=== PATIENT | female | born 1955 | race Two or more races ===

== ENCOUNTER → 2024-03-03 | Outpatient (CLI) | payer MEDICAID, SELFPAY ==
--- NOTE | 2024-03-03 12:20 | XR_ITS ---
Examination: Bone densitometry Date and time of exam:March 03, 2024 1207 hours INDICATIONS: Menopause age 48, levothyroxine 1 year Technique: Lumbar spine and hip total bone mineralization values of an calculated. Peak reference and age match control results have been displayed. Findings: Lumbar spine total bone mineralization is0.741 gm/cm2. This is 2.8 standard deviations below peak reference. This is 0.6 standard deviations below age-matched controls. Hip total bone mineralization is 0.748 gm/cm2 This is 1.6 standard deviations below peak reference. This is 0.1 standard deviations below age-matched controls Impression: There is osteoporosis based on lumbar spine measurements. There is osteopenia based on hip measurements
== END | disposition home or self-care (01) ==
LOC: CDIM 11:48
PROVIDERS: Referring Provider Student in an Organized Health Care Education/Training Program; Visit Provider Student in an Organized Health Care Education/Training Program
DX: M81.0 Age-related osteoporosis without current pathological fracture (principal); M85.88 Other specified disorders of bone density and structure, other site; G89.29 Other chronic pain
CPT/HCPCS: 77080

== ENCOUNTER 2024-03-16 16:46 | Emergency (ER) | payer MEDICAID, SELFPAY ==
[2024-03-16 17:18] VITALS: BP 128/73; PULSE 75; RESP 16; TEMP 36.8; O2SAT 96; BMI 22.8
--- NOTE | 2024-03-16 17:58 | EDNOTE_ITS ---
ED Ear RME/HPI General Chief complaint: Ear Stated complaint: pain in both ears, more in right x 3 weeks Time Seen by Provider: 03/16/24 17:10 Arrival date/time: 03/16/24 16:46 RME / HPI RME / HPI Narrative: DR. WHARTON MAIN ED EVALUATION: 68 year old female presents to the Emergency Department with complaint of pain in both ears, moreso in the right ear. Onset of symptoms 3 weeks, worse today. Patient recently had a cold. PMHx: Hypertension, hypothyroidism, CKD, and GERD. Social Hx: No tobacco, alcohol, or substance use. Related Data Home Medications ?Medication ?Instructions ?Recorded ?Confirmed ondansetron 4 mg disintegrating 4 mg PO Q4-5H PRN Nausea 01/13/23 01/06/24 tablet Previous Rx's ?Medication ?Instructions ?Recorded acetaminophen 500 mg tablet 500 mg PO [id number] PRN Pain, Mild 03/12/23 #30 tabs omeprazole 40 mg capsule,delayed 40 mg PO QDAY #30 caps 03/12/23 release betamethasone dipropionate 0.05 % 1 applic topical QDAY #45 grams 07/07/23 topical ointment tramadol 50 mg tablet 50 mg PO Q6H PRN pain #30 tabs 08/16/23 levothyroxine 25 mcg capsule 25 mcg PO QDAY #60 caps 12/22/23 pilocarpine HCl 5 mg tablet 10 mg (2 x 5 mg) PO TID 30 days 01/06/24 #180 tabs amlodipine 2.5 mg tablet 2.5 mg PO QDAY 30 days #30 tabs 01/20/24 atorvastatin 40 mg tablet 40 mg PO QHS #30 tabs 01/20/24 ergocalciferol (vitamin D2) 1,250 1,250 mcg PO QWEEK #4 caps 01/20/24 mcg (50,000 unit) capsule acetaminophen 300 mg-codeine 30 mg 2 tab PO TID PRN pain #20 tabs 03/16/24 tablet [id number] 3.3 4 drp otic (ear) TID 7 days #10 mL 03/16/24 mg-3 mg-10 mg-0.5 mg/mL ear drops,susp (Cortisporin-TC) Allergies Allergy/AdvReac Type Severity Reaction Status Date / Time No Known Allergies Allergy Verified 03/16/24 16:47 Review of Systems Review of Systems Systems Reviewed: All systems reviewed, normal except as documented Narrative Review of Systems: GEN: No fever, no chills, no weight loss EYES: No discharge, no visual changes, no pain HEENT: + bilateral ear pain (right ear worse), no congestion, no sore throat PULM: No shortness of breath, no cough, no congestion CV: No chest pain, no dyspnea on exertion, no palpitations GI: No nausea, no vomiting, no diarrhea, no pain, no constipation : No frequency, no urgency and no dysuria MUSC/SKEL: No joint pain, no back pain SKIN: No rash PSYCH: No hallucinations, no depression HEME/LYMPH: No easy bleeding or bruising tendencies NEURO: No weakness, no headache Past Medical History Past Medical History NEUROLOGIC: Positive Neurological Disorders and Migraine; Negative Seizures CARDIAC: Positive Hypertension; Negative Cardiac Disorders or Congestive Heart Failure RESPIRATORY: Negative Chronic Obstructive Pulmonary Disease (COPD) or Asthma GASTROINTESTINAL: Positive Gastrointestinal Disorders and Gastroesophageal Reflux Disease GENITOURINARY: Positive Genitourinary Disorders and Kidney Stones; Negative Renal Disease MUSCULOSKELETAL: Positive Musculoskeletal Disorders ENT: Positive Cataracts ENDOCRINE: Positive Hypothyroidism; Negative Diabetes Mellitus Type 1 or Diabetes Mellitus Type 2 HEMATOLOGIC: Negative Blood Disorders or Sickle Cell Disease PSYCHO/SOCIAL: Negative Depression or Anxiety OTHER HISTORY: Positive Chemotherapy, Radiation Therapy and Cancer; Negative Autoimmune Disease, Blood Transfusions, Blood Transfusion Reaction, Anesthesia Reactions, MRSA, VRSA, Vancomycin-Resistant Enterococci or Clostridium Difficile Family History FAMILY HISTORY: Negative Family Psychiatric Problems, Family Respiratory Disorders, Family Cardiac Disorders, Family Gastrointestinal Problems, Family Cancer, Family Surgery or Family Anesthesia Reaction Social History SMOKING STATUS: Never smoker SUBSTANCE USE: does not use ALCOHOL: Never ED Exam Narrative Physical exam: GENERAL APPEARANCE: alert and oriented x 4, well-developed, well-nourished, no acute distress VITALS: All vitals were reviewed and the pulse ox is 96% on room air, which is normal according to my interpretation. HEENT: Normocephalic, atraumatic; pupils equal, round, reactive to light; EOMI; mucous membranes pink, moist; oropharynx clear, + right ear impacted with cerumen NECK: Supple LUNGS: CTABL; no wheezes, no rales, no rhonchi HEART: Regular rate, regular rhythm; normal S1, S2; no murmurs ABDOMEN: non distended; normal BS; soft, no tenderness, no guarding, no rebound; no masses, no organomegaly, no hernia BACK: no CVA tenderness EXTREMITIES: atraumatic; no edema NEUROLOGIC: awake; alert and oriented x4; cranial nerves II-XII grossly intact; no focal sensory or motor deficits PSYCHIATRIC: appropriate mood and affect SKIN: warm, dry, normal color; no rashes Course Course Course Narrative: 1800: Patient was signed out to Dr. Bynum. Past medical, surgical, social and family history reviewed. Vitals and home medications reviewed. Results and treatment plan discussed. They will assume the care of the patient at this time and will follow the patient, pending ear irrigation and final disposition. Quality Measures none Orders Category Date Time Status ACETAMINOPHEN w/COD 300-30 [Tylenol w/Cod #3] Med 03/16/24 18:13 Discontinued 2 tab PO X1 ONE Vital Signs Vital signs: Vital Signs Temperature 98.2 F 03/16/24 17:18 Pulse Rate 75 03/16/24 17:18 Respiratory Rate 16 03/16/24 17:18 Blood Pressure 128/73 03/16/24 17:18 Pulse Oximetry (%) 96 03/16/24 17:18 Oxygen Delivery Method Room Air 03/16/24 17:18 Ear MDM Narrative MDM Narrative:: IJanine am scribing for and in the presence of Dr. Wharton. Patient data External records reviewed:: [facility] previous records (Reviewed physical therapy note dated 02/17/24.) Clinical information provided by:: patient Social determinants that could affect healthcare access:: none Patient has the following chronic illnesses:: Hypertension, hypothyroidism, CKD, and GERD. How is presenting disease/condition affected by chronic disease/condition?: uneffected by Evaluation data The following diagnostics were reviewed and interpreted by me:: other (specify) (none) Lab and/or radiology exams considered but not ordered:: none Interpretation Summary: n/a Medications / Prescriptions Medications or Prescriptions considered but not ordered:: none Medication administrations:: Medication Administration History Discontinued Medications Acetaminophen/Codeine Phosphate (Acetaminophen W/Cod 300-30 Tablet) 2 tab PO X1 ONE Stop: 03/16/24 18:14 Last Admin: 03/16/24 18:19 Dose: 2 tab Documented By: EH see above Consultations Consultation(s) initiated? (list below): No Diagnosis Ear Differential Diagnosis: otitis externa, otitis media and cerumen impaction Most likely diagnosis given after review of the tests above:: Infection of right ear Impacted cerumen of right ear Admission Indicated Admission indicated?: not indicated Admission Request Was there a request for admission?: No Disposition Plan Disposition Plan: other (specify) (Patient signout to the maintenance technician 3rd shift provider. ) Medical Decision Making MDM Narrative MDM Narrative: Janine Valero am scribing for and in the presence of Dr. Wharton. Discharge Plan Plan Patient Disposition: HOME (Self Care) Prescriptions/Referrals Prescriptions/Med Rec: New acetaminophen-codeine 300-30 mg tablet 2 tab PO TID MDD 6 PRN (Reason: pain) Qty: 20 0RF Cortisporin-TC 3.3-3-10-0.5 mg/mL drops,suspension 4 drp otic (ear) TID 7 Days Qty: 10 0RF No Action acetaminophen 500 mg tablet 500 mg PO [id number] PRN (Reason: Pain, Mild) Qty: 30 0RF omeprazole 40 mg capsule,delayed release(DR/EC) 40 mg PO QDAY Qty: 30 0RF betamethasone dipropionate 0.05 % ointment 1 applic topical QDAY Qty: 45 0RF pilocarpine HCl 5 mg tablet 10 mg PO TID 30 Days Qty: 180 3RF amlodipine 2.5 mg tablet 2.5 mg PO QDAY 30 Days Qty: 30 2RF atorvastatin 40 mg tablet 40 mg PO QHS Qty: 30 2RF ergocalciferol (vitamin D2) 1,250 mcg (50,000 unit) capsule 1,250 mcg PO QWEEK Qty: 4 2RF levothyroxine 25 mcg capsule 25 mcg PO QDAY Qty: 60 1RF ondansetron 4 mg tablet,disintegrating 4 mg PO Q4-5H PRN (Reason: Nausea) Patient Comments: DISSOLVE 1 TABLET ON THE TONGUE EVERY 4-6 HOURS NEEDED FOR NAUSEA FOR 14 DAYS tramadol 50 mg tablet 50 mg PO Q6H PRN (Reason: pain) Qty: 30 0RF Problem List Clinical Impression: Infection of right ear, Impacted cerumen of right ear Patient/Caregiver Discharge Instructions Education Materials: ED PERFORATED TM Infected [Adult], ED External Ear Infection (Adult), ED Earwax Removal Additional Instructions: Discharge Instructions from Dr. Bynum printed for you: 1. You have severe right ear infection (seen after removing the earwax) which caused small perforation of the eardrum. The perforation will close and heal in one month. 2. For the infection, use the eardrops prescribed today and take Augmentin prescribed by your outside doctor. 3. Ibuprofen 400 mg every 6-8 hours today and tomorrow to decrease inflammation then as needed. 4. Tylenol with codeine for severe pain. 5. See your private doctor on 03/18/2024 for recheck. Ask for help until you are completely better. If needed, ask for a referral to see ENT (ear/nose/throat) specialist. 6. Seek immediate medical care with worsening or with any concerns. Print Language: Kinyarwanda Stand Alone Forms: Shira Award Info., Patient Portal Info Letter
--- NOTE | 2024-03-16 18:18 | EDNOTE_ITS ---
Emergency Room Addendum <Janine Leal - Last Filed: 03/16/24 18:32> Addendum Narrative: 1800: Care assumed from Dr. Wharton, the previous shift emergency physician. Past medical, surgical, social and family history reviewed. Vitals and home medications reviewed. I will assume the care of the patient at this time, pending ear irrigation and final disposition. Please refer to the emergency department record for history and examination from initial visit.? Physical exam by me shows patient under no acute distress at this time. 1821: Patient remains clinically stable throughout the emergency department visit. Re-assessment at the time of disposition demonstrates that the patient is in no acute distress. We reviewed all the results, analysis, and treatment plans. Patient is amenable to discharge. Strict return precautions were outlined. Patient was discharged in stable condition. <Raza Bynum MD - Last Filed: 03/16/24 19:52> Addendum Narrative: I took over the care from Dr. WHARTON at 6 PM, see her notes for complete H&P and ED course. I was asked to irrigate her right auditory canal for cerumen impaction. Using warm water, I successfully irrigated her right auditory canal and removed entire cerumen impaction, patient felt much better. On exam, TM severely erythematous and bulging and loss of landmarks. Entire auditory canal remarkable for severe erythema and edema and tenderness. At this point, diagnoses include?right otitis media and otitis externa and cerumen impaction now resolved. Patient has a prescription for Augmentin from outside doctor. Prescribed eardrops and recommended more outpatient care. Based on my best medical judgment, made decision no further evaluation or treatment indicated at this time.? Patient understands and agrees to the discharge instructions customized and printed, see below. Discharge Instructions from Dr. Bynum printed for you: 1. You have severe right ear infection (seen after removing the earwax) which caused small perforation of the eardrum. The perforation will close and heal in one month. 2. For the infection, use the eardrops prescribed today and take Augmentin p rescribed by your outside doctor. 3. Ibuprofen 400 mg every 6-8 hours today and tomorrow to decrease inflammation then as needed. 4. Tylenol with codeine for severe pain. 5. See your private doctor on 03/18/2024 for recheck. Ask for help until you are completely better. If needed, ask for a referral to see ENT (ear/nose/throat) specialist. 6. Seek immediate medical care with worsening or with any concerns. Raza Bynum MD
[2024-03-16] MEDS: ACETAMINOPHEN w/COD 300-30 TABLET 2 TAB PO (18:19)
== END 2024-03-16 18:26 | disposition home or self-care (01) ==
LOC: SERX 18:45
PROVIDERS: Emergency Provider Emergency Medicine
DX: H60.391 Other infective otitis externa, right ear (principal); H61.21 Impacted cerumen, right ear; I12.9 Hypertensive chronic kidney disease with stage 1 through stage 4 chronic kidney disease, or unspecified chronic kidney disease; K21.9 Gastro-esophageal reflux disease without esophagitis; N18.9 Chronic kidney disease, unspecified; E03.9 Hypothyroidism, unspecified
CPT/HCPCS: 99282; A9270

== ENCOUNTER 2024-04-06 09:51 | Outpatient (AMB) | payer MEDICAID, SELFPAY ==
[2024-04-06 09:52] VITALS: BP 145/71; PULSE 97; RESP 18; TEMP 36.7; O2SAT 97; BMI 22.4
--- NOTE | 2024-04-06 09:52 | PD.RESCLINIC ---
Vital Signs 04/06/24 09:52 Height 1.65 m Height Method Stated Weight 60.895 kg Weight Measurement Method Standing Scale BMI 22.4 BP 145/71 H Blood Pressure Source Automatic Cuff Blood Pressure Location Left Upper Arm Position Sitting Respiration 18 Pulse 97 Pulse Source Monitor Temp 98.1 F Temp Source Oral Pulse Oximetry (%) 97 Oxygen Delivery Method Room Air Allergies/Meds Allergies & Medications Allergies No Known Allergies Allergy (Verified 04/06/24 10:04) Medication Reconciliation ondansetron 4 mg disintegrating tablet 4 mg PO Q4-5H PRN Nausea 01/13/23 [History Confirmed 04/06/24] acetaminophen 500 mg tablet 500 mg PO [id number] PRN Pain, Mild #30 tabs 03/12/23 [Rx Confirmed 04/06/24] omeprazole 40 mg capsule,delayed release 40 mg PO QDAY #30 caps 03/12/23 [Rx Confirmed 04/06/24] betamethasone dipropionate 0.05 % topical ointment 1 applic topical QDAY #45 grams 07/07/23 [Rx Confirmed 04/06/24] tramadol 50 mg tablet 50 mg PO Q6H PRN pain #30 tabs 08/16/23 [Rx Confirmed 04/06/24] levothyroxine 25 mcg capsule 25 mcg PO QDAY #60 caps 12/22/23 [Rx Confirmed 04/06/24] pilocarpine HCl 5 mg tablet 10 mg (2 x 5 mg) PO TID 30 days #180 tabs 01/06/24 [Rx Confirmed 04/06/24] amlodipine 2.5 mg tablet 2.5 mg PO QDAY 30 days #30 tabs 01/20/24 [Rx Confirmed 04/06/24] atorvastatin 40 mg tablet 40 mg PO QHS #30 tabs 01/20/24 [Rx Confirmed 04/06/24] ergocalciferol (vitamin D2) 1,250 mcg (50,000 unit) capsule 1,250 mcg PO QWEEK #4 caps 01/20/24 [Rx Confirmed 04/06/24] acetaminophen 300 mg-codeine 30 mg tablet 2 tab PO TID PRN pain #20 tabs 03/16/24 [Rx Confirmed 04/06/24] famotidine 40 mg tablet 40 mg PO BID 30 days #60 tabs 04/06/24 [Rx] loratadine 5 mg-pseudoephedrine ER 120 mg tablet,extended release,12hr (Claritin-D 12 Hour) 1 tab PO Q12H 30 days #60 tabs 04/06/24 [Rx] meclizine 12.5 mg tablet 12.5 mg PO BID PRN dizziness or vertigo 20 days #14 tabs 04/06/24 [Rx] ibandronate 150 mg tablet 150 mg PO QMONTH #3 tabs 04/08/24 [Rx] MA Intake Visit Data Collection New Patient or Established: Established Patient (seen at [facility] within 3 years) Seen by Clinical Staff ONLY (RN/MA): No Pain Present Currently: No Pain scale:: 0 Pain Scale Used: Darby-Marlow/Numerical Machine Pecan Picker Required: Yes PCP or OBGYN visit in last 3 months: Yes Hx Now: No Do You Feel Safe at Home: Yes Authorities Contacted: N/A Smoking Status Smoking Status: Never smoker Immunization / Flu Flu Vaccine in the Last 12 Months: No Flu Vaccine Exclusion Criteria: No Exclusion Criteria Past Medical History Past Medical History NEUROLOGIC: Positive Neurological Disorders and Migraine; Negative Seizures CARDIAC: Positive Hypertension; Negative Cardiac Disorders or Congestive Heart Failure RESPIRATORY: Negative Chronic Obstructive Pulmonary Disease (COPD) or Asthma GASTROINTESTINAL: Positive Gastrointestinal Disorders and Gastroesophageal Reflux Disease GENITOURINARY: Positive Genitourinary Disorders and Kidney Stones; Negative Renal Disease ENT: Positive Cataracts ENDOCRINE: Positive Hypothyroidism; Negative Diabetes Mellitus Type 1 or Diabetes Mellitus Type 2 HEMATOLOGIC: Negative Blood Disorders or Sickle Cell Disease PSYCHO/SOCIAL: Negative Depression or Anxiety OTHER HISTORY: Positive Chemotherapy, Radiation Therapy and Cancer; Negative Autoimmune Disease, Blood Transfusions, Blood Transfusion Reaction, Anesthesia Reactions, MRSA, VRSA, Vancomycin-Resistant Enterococci or Clostridium Difficile Family History FAMILY HISTORY: Negative Family Psychiatric Problems, Family Respiratory Disorders, Family Cardiac Disorders, Family Gastrointestinal Problems, Family Cancer, Family Surgery or Family Anesthesia Reaction Social History SMOKING STATUS: Smoking status: Never smoker ALCOHOL: Alcohol Intake: Never HOUSING: Housing: House LIVES WITH: Lives With: Family Patient Portal Questionairmatt Social History Living Situation History Housing: House Tobacco History Smoking Status: Never smoker Alcohol History Alcohol Intake: Never Domestic Abuse History Do You Feel Safe at Home: Yes Review of Systems Report any current symptoms Only answer those that you have currently: Past Medical History Past Medical History Have you ever been diagnosed with any of the following: Neurological Problems Seizures: No Migraine: Yes Cardiology Problems Congestive Heart Failure: No Hypertension: Yes Respiratory Problems Chronic Obstructive Pulmonary Disease (COPD): No Asthma: No Stomache/Intestinal Problems Gastroesophageal Reflux Disease: Yes Genital/Urinary Problems Renal Disease: No Kidney Stones: Yes Head,Eye,Nose,Throat Problems Cataracts: Yes Endocrine Problems Diabetes Mellitus Type 1: No Diabetes Mellitus Type 2: No Hypothyroidism: Yes Blood Problems Sickle Cell Disease: No Psychologic Problems Depression: No Anxiety: No Other Problems Autoimmune Disease: No Blood Transfusions: No Blood Transfusion Reaction: No Anesthesia Reactions: No Chemotherapy: Yes Radiation Therapy: Yes MRSA: No VRSA: No Vancomycin-Resistant Enterococci: No Clostridium Difficile: No Cancer: Yes History of Present Illness HPI Narrative A 67-year-old female patient known case of hypertension, CKD, cataract surgery, hypothyroidism, 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 Patient reported that for the past few days she has reported that she has dizziness in which she went to the ED and she was prescribed Tylenol, ibuprofen, and underwent earwax cleaning. She reported significant improvement of her symptoms however she still have some mild dizziness that is not related to position. She denied any tinnitus and denied any nausea or vomiting. She reported that her blood pressure usually normal and she stopped taking her blood pressure medications amlodipine. In review of other system patient mentioned that she has mild hip pain in which she takes Tylenol and resolved her symptoms. DEXA scan came back today and showed osteoporosis of the vertebral bones of -2.8. Most Recent Cardiac Tests: No Data to Display Review of Systems Review of Systems Systems Reviewed: All systems reviewed, normal except as documented Objective/Exam General General Appearance: alert, in no apparent distress, comfortable, cooperative, healthy appearing, well developed and well groomed Head Head exam: atraumatic, normocephalic and normal inspection Neck Neck exam: Present normal inspection, full ROM and trachea midline Chest Chest inspection: Present normal inspection and symmetric chest wall rise Resp Respiratory exam: Present normal lung sounds bilaterally Card Cardiovascular exam: Present regular rate, normal rhythm and normal heart sounds Abdominal Abdominal exam: Present soft and normal bowel sounds Extremities Extremities exam: Present normal inspection and full ROM Back Back exam: Present normal inspection and full ROM Neuro Neurological exam: Present alert, oriented X3 and CN II-XII intact Psych Psychiatric exam: Present normal affect and normal mood Assessment & Plan Diagnosis / Problem List (1) Dizziness: Assessment & Plan: No focal neurological symptoms, no presyncopal episodes, no sweating, continue symptoms most likely secondary to middle ear infection versus vestibulitis Plan: ? Patient was prescribed Augmentin as per ED physician notes from an outside doctor, recommended to continue ? Prescribe the patient meclizine 12.5 as needed twice daily ?Continue the patient on Claritin for 1 more week. ? In case of worsening of her symptoms please return to the ED or walk-in appointment according to symptom severity ? In case of loss of balance, weakness, facial droop, blurry vision, difficulty of speaking patient was instructed to come to the ED as soon as possible. ? In case of worsening of your symptoms please return to the office (2) Age related osteoporosis: Status: Acute Qualifiers: Presence of current pathological fracture: without current pathological fracture Qualified Code(s): M81.0 - Age-related osteoporosis without current pathological fracture Assessment & Plan: Patient DEXA scan was done in February 2024 and showed a 2.8 standard deviations below peak reference. Plan: ? Ibandrobate 150mg Qmonth ? Switched omeprazole to famotidine Advanced Care Planning Advance care planning discussed with:: patient and child Office Procedures [facility] Level of Care Nursing/Assessment Patient Status: Established Patient Nursing Assessment/Reassessment: Medication Reconciliation, Update PMH in EMR and Vital Signs Coordination of Care: Complex Care and Chronic Disease 1-5, Consent,records obtained, informed consent, Education Simp Pt/Fam, Lab and Imaging orders and Staff clarify orders Established Patient Charge Established Patient Point Assignment: 100 Established Patient Point Charge: Level 3 (80-115)
== END 2024-04-06 10:44 | disposition home or self-care (01) ==
LOC: HODAHC 09:51
PROVIDERS: PCP Student in an Organized Health Care Education/Training Program; Referring Provider Student in an Organized Health Care Education/Training Program; Supervising Provider Internal Medicine; Visit Provider Student in an Organized Health Care Education/Training Program
DX: R42 Dizziness and giddiness (principal)
CPT/HCPCS: 99213; A9270; G0463

== ENCOUNTER 2024-05-04 08:59 | Outpatient (AMB) | payer MEDICAID, SELFPAY ==
[2024-05-04 09:05] VITALS: BP 126/77; PULSE 71; RESP 14; TEMP 36.8; O2SAT 96; BMI 25.3
--- NOTE | 2024-05-04 09:05 | ACNOTE_ITS ---
Vital Signs 05/04/24 09:05 Height 1.57 m Height Method Stated Weight 62.823 kg Weight Measurement Method Standing Scale BMI 25.3 BP 126/77 Blood Pressure Source Automatic Cuff Blood Pressure Location Left Upper Arm Position Sitting Respiration 14 Pulse 71 Pulse Source Monitor Temp 98.3 F Temp Source Oral Pulse Oximetry (%) 96 Oxygen Delivery Method Room Air Allergies/Meds Allergies & Medications Allergies No Known Allergies Allergy (Verified 05/04/24 09:07) Medication Reconciliation ondansetron 4 mg disintegrating tablet 4 mg PO Q4-5H PRN Nausea 01/13/23 [History Confirmed 05/04/24] acetaminophen 500 mg tablet 500 mg PO [id number] PRN Pain, Mild #30 tabs 03/12/23 [Rx Confirmed 05/04/24] omeprazole 40 mg capsule,delayed release 40 mg PO QDAY #30 caps 03/12/23 [Rx Confirmed 05/04/24] betamethasone dipropionate 0.05 % topical ointment 1 applic topical QDAY #45 grams 07/07/23 [Rx Confirmed 05/04/24] tramadol 50 mg tablet 50 mg PO Q6H PRN pain #30 tabs 08/16/23 [Rx Confirmed 05/04/24] levothyroxine 25 mcg capsule 25 mcg PO QDAY #60 caps 12/22/23 [Rx Confirmed 05/04/24] pilocarpine HCl 5 mg tablet 10 mg (2 x 5 mg) PO TID 30 days #180 tabs 01/06/24 [Rx Confirmed 05/04/24] amlodipine 2.5 mg tablet 2.5 mg PO QDAY 30 days #30 tabs 01/20/24 [Rx Confirmed 05/04/24] atorvastatin 40 mg tablet 40 mg PO QHS #30 tabs 01/20/24 [Rx Confirmed 05/04/24] ergocalciferol (vitamin D2) 1,250 mcg (50,000 unit) capsule 1,250 mcg PO QWEEK #4 caps 01/20/24 [Rx Confirmed 05/04/24] acetaminophen 300 mg-codeine 30 mg tablet 2 tab PO TID PRN pain #20 tabs 03/16/24 [Rx Confirmed 05/04/24] famotidine 40 mg tablet 40 mg PO BID 30 days #60 tabs 01/14/25 [Rx Confirmed 05/04/24] loratadine 5 mg-pseudoephedrine ER 120 mg tablet,extended release,12hr (Claritin-D 12 Hour) 1 tab PO Q12H 30 days #60 tabs 04/06/24 [Rx Confirmed 05/04/24] ibandronate 150 mg tablet 150 mg PO QMONTH #3 tabs 04/08/24 [Rx Confirmed 05/04/24] diphenhydramine-zinc acetate 2 %-0.1 % topical cream (Benadryl Extra Strength) 1 applic topical TID #28.3 grams 05/04/24 [Rx] MA Intake Visit Data Collection New Patient or Established: Established Patient (seen at [facility] within 3 years) Seen by Clinical Staff ONLY (RN/DORIS): No Pain Present Currently: No Pain scale:: 0 Pain Scale Used: Darby-Marlow/Numerical Integrated Circuit Design Engineer Required: No PCP or OBGYN visit in last 3 months: Yes Hx Now: No Do You Feel Safe at Home: Yes Authorities Contacted: N/A Smoking Status Smoking Status: Never smoker Immunization / Flu Flu Vaccine in the Last 12 Months: No Flu Vaccine Exclusion Criteria: No Exclusion Criteria Past Medical History Past Medical History NEUROLOGIC: Positive Neurological Disorders and Migraine; Negative Seizures CARDIAC: Positive Hypertension; Negative Cardiac Disorders or Congestive Heart Failure RESPIRATORY: Negative Chronic Obstructive Pulmonary Disease (COPD) or Asthma GASTROINTESTINAL: Positive Gastrointestinal Disorders and Gastroesophageal Ref lux Disease GENITOURINARY: Positive Genitourinary Disorders and Kidney Stones; Negative Renal Disease ENT: Positive Cataracts ENDOCRINE: Positive Hypothyroidism; Negative Diabetes Mellitus Type 1 or Diabetes Mellitus Type 2 HEMATOLOGIC: Negative Blood Disorders or Sickle Cell Disease PSYCHO/SOCIAL: Negative Depression or Anxiety OTHER HISTORY: Positive Chemotherapy, Radiation Therapy and Cancer; Negative Autoimmune Disease, Blood Transfusions, Blood Transfusion Reaction, Anesthesia Reactions, MRSA, VRSA, Vancomycin-Resistant Enterococci or Clostridium Difficile Family History FAMILY HISTORY: Negative Family Psychiatric Problems, Family Respiratory Disorders, Family Cardiac Disorders, Family Gastrointestinal Problems, Family Cancer, Family Surgery or Family Anesthesia Reaction Social History SMOKING STATUS: Smoking status: Never smoker ALCOHOL: Alcohol Intake: Never HOUSING: Housing: House LIVES WITH: Lives With: Family Patient Portal Questionaires Social History Living Situation History Housing: House Tobacco History Smoking Status: Never smoker Alcohol History Alcohol Intake: Never Domestic Abuse History Do You Feel Safe at Home: Yes Review of Systems Report any current symptoms Only answer those that you have currently: Past Medical History Past Medical History Have you ever been diagnosed with any of the following: Neurological Problems Seizures: No Migraine: Yes Cardiology Problems Congestive Heart Failure: No Hypertension: Yes Respiratory Problems Chronic Obstructive Pulmonary Disease (COPD): No Asthma: No Stomache/Intestinal Problems Gastroesophageal Reflux Disease: Yes Genital/Urinary Problems Renal Disease: No Kidney Stones: Yes Head,Eye,Nose,Throat Problems Cataracts: Yes Endocrine Problems Diabetes Mellitus Type 1: No Diabetes Mellitus Type 2: No Hypothyroidism: Yes Blood Problems Sickle Cell Disease: No Psychologic Problems Depression: No Anxiety: No Other Problems Autoimmune Disease: No Blood Transfusions: No Blood Transfusion Reaction: No Anesthesia Reactions: No Chemotherapy: Yes Radiation Therapy: Yes MRSA: No VRSA: No Vancomycin-Resistant Enterococci: No Clostridium Difficile: No Cancer: Yes History of Present Illness HPI Narrative A 67-year-old female patient known case of hypertension, CKD, cataract surgery, hypothyroidism, 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 Patient reported that for the past few days she has reported that she has dizziness in which she went to the ED and she was prescribed Tylenol, ibuprofen, and underwent earwax cleaning. She reported significant improvement of her symptoms however she still have some mild dizziness that is not related to position. She denied any tinnitus and denied any nausea or vomiting. She reported that her blood pressure usually normal and she stopped taking her blood pressure medications amlodipine. In review of other system patient mentioned that she has mild hip pain in which she takes Tylenol and resolved her symptoms. DEXA scan came back today and showed osteoporosis of the vertebral bones of -2.8. 05/04/2024 Todat patient presented due to excessive itching on her hands, forarms and face, that appears on the exposed areas, She denied any fever or chills, however she reported fascial puffiness and itching. Of note patient was referred to senior design engineering specialist in [place] after her skin biopsy came back positive for Allergic dermatitis, in which he recommended to stop all the medications and resummed some of these meds gradually, and she was given a course of methylprednisolone for one week orally which resolved her symptoms, however yesterday was her last pill and her itching returned again. She mentioned that she used Zyrtec 5 once at bed time however it did not help. The patient next appointment with the senior design engineering specialist is on the this month. On review of other system she reproeted that she was referred last month to an ENT due to her dizziness and hearing loss, she was prescribed hearing aid however we asked the patient to ask for a copy of the medical record. Today she reported that she still has mild dizziness that last for few seconds assoicated with change of position, denied any N/V. Objective/Exam Narrative Physical exam: GEN: AOx3, able to speak full sentences, Seems to gain weight, HEENT: NC/AC, Face looks puffy, oral mucosa dry, neck supple CVS: RRR, S1-S2 present, no murmurs appreciated RESP: CTAB GI: soft,non distended, non tender, NBS MSK: able to move all 4 limbs, no lower extremity edema SKIN: erythematous rash on the forearms with excoriation barnes, no signs of secondery bacterial infection. and discharge. 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 Assessment & Plan Diagnosis / Problem List (1) Contact dermatitis: Status: Acute Qualifiers: Contact dermatitis trigger: unspecified trigger Contact dermatitis type: allergic Qualified Code(s): L23.9 - Allergic contact dermatitis, unspecified cause Plan: - Benadryl topical TID as needed - Increase the dose of Zyrtec to 10mg Per day as needed, Instructed to avoid sudden movements and usteady surfaces to avoid falls. - Follow up with the Allergic specialist on the (2) CKD (chronic kidney disease): Status: Acute Qualifiers: Chronic kidney disease stage: stage 3 (moderate) Chronic kidney disease stage 3 subtype: stage 3a (GFR 45-59) Qualified Code(s): N18.31 - Chronic kidn ey disease, stage 3a Assessment & Plan: Patient has not seen followed up with a communication clerk last year due to significant improvement of her GFR Plan: - Annual CMP -CBC (will also look for any eosinophilia) (3) Hypothyroidism: Status: Acute Qualifiers: Hypothyroidism type: acquired Qualified Code(s): E03.9 - Hypothyroidism, unspecified Assessment & Plan: Patient currently taking Levothyroxin 25mcg qday Plan: - TSH -Lipid panel -A1C Orders: Orders Ambulatory Hemoglobin A1C 1 Day E03.9 - Hypothyroidism, unspecified, L25.9 - Unspecified contact dermatitis, unspecified cause, N18.31 - Chronic kidney disease, stage 3a, Z00.00 - Encounter for general adult medical examination without abnormal findings Lipid Panel 1 Day Comprehensive Metabolic Panel 1 Day N18.31 - Chronic kidney disease, stage 3a Thyroid Stimulating Hormone 1 Day CBC 05/04/24 Z00.00 - Encounter for general adult medical examination without abnormal findings Additional Assessment Internal Medicine Attending Note: Case discussed with and agree with note and management plan of Resident Physician as per Resident's Note above. Issues of concern for present visit are as follows: Follow-up visit. Patient did see dermatology, biopsy demonstrated allergic contact dermatitis. Patient was referred to client leader to try to identify specific allergens. Has follow-up appointment later this month. Patient noting continued skin rash. Had been on a steroid taper. We will treat with topical diphenhydramine as well as oral antihistamine for itch. Trying to avoid use of further steroid in case further testing needs to be done and follow-up with allergy/outcomes specialist. Will check some routine labs today including CBC (look at differential, assess for eosinophilia) and CMP (follow-up of chronic kidney disease), lipids and TSH (hypothyroidism) Demarco Begum MD Advanced Care Planning Advance care planning discussed with:: other Physician Billing Established Patient Established Patient: E/M Level 3-CPT 68548 Office Procedures [facility] Level of Care Nursing/Assessment Patient Status: Established Patient Nursing Assessment/Reassessment: Medication Reconciliation, Update PMH in EMR and Vital Signs Coordination of Care: Complex Care and Chronic Disease 1-5, Consent,records obtained, informed consent, Education Simp Pt/Fam and Staff clarify orders Established Patient Charge Established Patient Point Assignment: 85 Established Patient Point Charge: EP Level 3 (80-115)
== END 2024-05-04 10:29 | disposition home or self-care (01) ==
LOC: HODAHC 08:59
PROVIDERS: PCP Student in an Organized Health Care Education/Training Program; Referring Provider Student in an Organized Health Care Education/Training Program; Supervising Provider Internal Medicine; Visit Provider Student in an Organized Health Care Education/Training Program
DX: L23.9 Allergic contact dermatitis, unspecified cause (principal); N18.31 Chronic kidney disease, stage 3a; E03.9 Hypothyroidism, unspecified
CPT/HCPCS: 99213; G0463

== ENCOUNTER 2024-06-05 14:59 | Emergency (ER) | payer MEDICAID, SELFPAY ==
[2024-06-05 15:08] VITALS: BP 182/92; PULSE 87; RESP 20; TEMP 36.7; O2SAT 95
--- NOTE | 2024-06-05 15:14 | XR_ITS ---
Examination: Lumbar spine 3 views Technique one AP lateral coned lateral lower lumbar spine 3 views Exam date and time: 06/05/2024 1610 hrs. Indications: Lifting injury several days ago with lower back pain. Findings: Moderate osteopenia. No lumbar fracture Mild to moderate diffuse lumbar disc narrowing Impression: No lumbar fracture
--- NOTE | 2024-06-05 15:15 | EDNOTE_ITS ---
ED Back Injury Pain RME/HPI General Chief Complaint: Back Pain/Injury Stated Complaint: BACK PAIN Time Seen by Provider: 06/05/24 15:01 Arrival date/time: 06/05/24 14:59 RME / HPI RME / HPI Narrative: 68-year-old female patient came in for evaluation regarding low back pain. Patient symptoms started yesterday after lifting an empty trash can resulting to sudden onset of low back pain, described as dull ache, severity moderate. Patie nt is fasting right now due to Ramadan and not allowed to drink or eat during the day. Denies any dysuria. Denies any bladder incontinence. Denies any bowel incontinence. Patient is ambulatory. Denies any similar episode in the past Related Data Home Medications ?Medication ?Instructions ?Recorded ?Confirmed ondansetron 4 mg disintegrating 4 mg PO Q4-5H PRN Naus ea 01/13/23 05/04/24 tablet Previous Rx's ?Medication ?Instructions ?Recorded acetaminophen 500 mg tablet 500 mg PO [id number] PRN Pain , Mild 03/12/23 #30 tabs omeprazole 40 mg capsule,delayed 40 mg PO QDAY #30 cap s 03/12/23 release betamethasone dipropionate 0.05 % 1 applic topical QDA Y #45 grams 07/07/23 topical ointment tramadol 50 mg tablet 50 mg PO Q6H PRN pain #30 ta bs 08/16/23 levothyroxine 25 mcg capsule 25 mcg PO QDAY #60 caps 0 12/22/23 pilocarpine HCl 5 mg tablet 10 mg (2 x 5 mg) PO TID 30 days 01/06/24 #180 tabs amlodipine 2.5 mg tablet 2.5 mg PO QDAY 30 days #30 t abs 01/20/24 atorvastatin 40 mg tablet 40 mg PO QHS #30 tabs ergocalciferol (vitamin D2) 1,250 1,250 mcg PO QWEEK # 4 caps 01/20/24 mcg (50,000 unit) capsule acetaminophen 300 mg-codeine 30 mg 2 tab PO TID PRN pa in #20 tabs 03/16/24 tablet ibandronate 150 mg tablet 150 mg PO QMONTH #3 tabs diphenhydramine-zinc acetate 2 1 applic topical TID #2 8.3 grams 05/04/24 %-0.1 % topical cream (Benadryl Extra Strength) cyclobenzaprine 10 mg tablet 10 mg PO TID PRN muscle s pasm #20 06/05/24 tabs ketorolac 10 mg tablet 10 mg PO Q8H PRN pain 5 days #20 06/05/24 tabs Allergies Allergy/AdvReac Type Severity Reaction Status Date / Time No Known Allergies Allergy Verified 06/05/24 15:03 Review of Systems Review of Systems Narrative Review of Systems: Review of system reviewed and within normal limits except mentioned in HPI ED Exam Narrative Physical exam: VITAL SIGNS: Reviewed. GENERAL APPEARANCE: Alert and interactive, follows commands, no acute distress, HEAD AND FACE: Non-traumatic. ENT: PERRL, pink conjunctivitis, eyelid no trauma, Mucous membrane moist. NECK: Supple, nontender, no nuchal rigidity. CHEST: No tenderness, no crepitus, no paradoxical movement, no retractions. LUNGS: Clear, well ventilated, symmetric, no rales, no wheezing, no ronchi, no stridor, good breath sounds bilaterally. HEART: Regular rate, regular rhythm, no murmur, no gallops. ABDOMEN: Soft, positive bowel sounds, nondistended, no guarding, nontender, no rebound, no masses, RECTAL: Deferred. GENITAL: Deferred. NEUROLOGICAL: Gross motor function intact sensory function intact, Appropriate for age. MUSCULOSKELETAL: low back tenderness, full range of motion. EXTREMITIES: Nontender, full range of motion. SKIN: Color pink, dry, no rash, no lacerations, no abrasions, no contusions. LYMPHATICS: Deferred. Course Quality Measures none Orders Category Date Time Status XR lumbar spine 2-3V Stat Exams 06/05/24 15:14 Taken UA, C/S IF [Urinalysis, C/S if Indicated] Stat Lab 06/05/24 16:03 Completed Ketorolac Inj [Toradol Inj] Med 06/05/24 15:14 Discontinued 30 mg IM X1 ONE Vital Signs Vital signs: Vital Signs Temperature 98.1 F 06/05/24 15:08 Pulse Rate 87 06/05/24 15:08 Respiratory Rate 20 06/05/24 15:08 Blood Pressure 182/92 H 06/05/24 15:08 Pulse Oximetry (%) 95 06/05/24 15:08 Oxygen Delivery Method Room Air 06/05/24 15:08 Back Pain / Injury [facility] Narrative [facility] Narrative:: 68-year-old female patient came in for evaluation regarding low back pain. Pat ient symptoms started yesterday after lifting an empty trash can resulting to sudden onset of low back pain, described as dull ache, severity moderate. Patient is fasting right now due to Ramadan and not allowed to drink or eat during the day. Denies any dysuria. Denies any bladder incontinence. Denies any bowel incontinence. Patient is ambulatory. Denies any similar episode in the past Urinalysis no UTI. X-ray of the lumbar spine came back with no fracture or dislocation noted. Results discussed with the patient and family. Patient verbalized significant improvement of low back pain Patient data External records reviewed:: None Clinical information provided by:: patient and family Social determinants that could affect healthcare access:: none Patient has the following chronic illnesses:: None How is presenting disease/condition affected by chronic disease/condition?: no chronic disease Evaluation data The following diagnostics were reviewed and interpreted by me:: lab results and radiology exam(s) Lab and/or radiology exams considered but not ordered:: None Interpretation Summary: See results in MDM Medications / Prescriptions Medications or Prescriptions considered but not ordered:: None Medication administrations:: Medication Administration History Discontinued Medications Ketorolac Tromethamine (Ketorolac Inj 60 Mg/2 Ml Vial) 30 mg IM X1 ONE Stop: 06/05/24 15:15 Last Admin: 06/05/24 16:43 Dose: 30 mg Documented By: HARINDER Toradol IM Consultations Consultation(s) initiated? (list below): No Diagnosis Differential diagnosis back pain/injury: lumbar radiculopathy and sciatica Most likely diagnosis given after review of the tests above:: Acute low back pain Admission Indicated Admission indicated?: not indicated Explain why admission is indicated or not indicated:: Stable Admission Request Was there a request for admission?: No Disposition Plan Disposition Plan: Discharge Discharge Attestation Discharge Attestation: The patient and all family members were given an opportunity to ask questions and understood the discharge instructions. Discharge instructions specifically effects, indications for sooner follow up or return to the emergency department, and the expected course of current diagnosis. Patient condition: Stable Discharge Plan Plan Patient Disposition: HOME (Self Care) Disposition Comment: stable Prescriptions/Referrals Prescriptions/Med Rec: New ketorolac 10 mg tablet 10 mg PO Q8H PRN (Reason: pain) 5 Days Qty: 20 0RF cyclobenzaprine 10 mg tablet 10 mg PO TID PRN (Reason: muscle spasm) Qty: 20 0RF No Action acetaminophen 500 mg tablet 500 mg PO [id number] PRN (Reason: Pain, Mild) Qty: 30 0RF omeprazole 40 mg capsule,delayed release(DR/EC) 40 mg PO QDAY Qty: 30 0RF ibandronate 150 mg tablet 150 mg PO QMONTH Qty: 3 2RF betamethasone dipropionate 0.05 % ointment 1 applic topical QDAY Qty: 45 0RF pilocarpine HCl 5 mg tablet 10 mg PO TID 30 Days Qty: 180 3RF amlodipine 2.5 mg tablet 2.5 mg PO QDAY 30 Days Qty: 30 2RF atorvastatin 40 mg tablet 40 mg PO QHS Qty: 30 2RF ergocalciferol (vitamin D2) 1,250 mcg (50,000 unit) capsule 1,250 mcg PO QWEEK Qty: 4 2RF Benadryl Extra Strength 2-0.1 % cream 1 applic topical TID Qty: 28.3 0RF levothyroxine 25 mcg capsule 25 mcg PO QDAY Qty: 60 1RF acetaminophen-codeine 300-30 mg tablet 2 tab PO TID MDD 6 PRN (Reason: pain) Qty: 20 0RF ondansetron 4 mg tablet,disintegrating 4 mg PO Q4-5H PRN (Reason: Nausea) Patient Comments: DISSOLVE 1 TABLET ON THE TONGUE EVERY 4-6 HOURS NEEDED FOR NAUSEA FOR 14 DAYS tramadol 50 mg tablet 50 mg PO Q6H PRN (Reason: pain) Qty: 30 0RF Problem List Clinical Impression: Acute low back pain Patient/Caregiver Discharge Instructions Discharge Activity: activity as tolerated Education Materials: Back Exercises: Back Press Additional Instructions: Thank you for the opportunity for serving you today. You are stable for discharged . You are advised to: Follow-up with your PCP in 1 to 2 days Return to ED for worsening of symptoms Increase oral fluids Take medication as prescribed Print Language: Nepali Stand Alone Forms: Shira Award Info., Patient Portal Info Letter PA/TORREY Supervising Physician MARCELLE/TORREY Supervising Physician: MD Majo
[2024-06-05 16:14] LABS: Collection Type, Urine Clean Catch
[2024-06-05 16:25] LABS: Bilirubin,Urine Negative (Negative); Blood,Urine Negative (Negative); Clarity,Urine Clear (Clear/Hazy); Culture Indicated,Urine Not Indicated; Glucose, Urine Negative (Negative); Ketones,Urine Negative (Negative); Leukocyte Esterase,Urine Positive (Negative); Nitrite,Urine Negative (Negative); PH,Urine 7.5 (5.0-7.0); Protein,Urine Negative (Neg - Trace); RBC,Urine 1 /hpf (0-3); Specific Gravity,Urine 1.012 (1.001-1.035); Squamous Epithelial Cell,Urine 1 /hpf (0-5); Urobilinogen,Urine Negative mg/dL (0.0-1.0); WBC,Urine 2 /hpf (0-5)
[2024-06-05 16:29] LABS: Color,Urine Lt-Yellow (Lt Yel-Yel)
[2024-06-05] MEDS: KETOROLAC INJ 60 MG/2 ML VIAL 30 MG IM (16:43)
== END 2024-06-05 17:42 | disposition home or self-care (01) ==
PROVIDERS: Nurse Practitioner Family; Emergency Provider Family Medicine; PCP Family Medicine
DX: M54.50 Low back pain, unspecified (principal)
CPT/HCPCS: 72100; 81001; 96372; 99283; J1885

== ENCOUNTER 2024-07-16 21:58 | Emergency (ER) | payer MEDICAID, SELFPAY ==
[2024-07-16 21:59] VITALS: BMI 25.0
--- NOTE | 2024-07-16 22:07 | EKG_ITS ---
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
[2024-07-16 22:28] VITALS: BP 171/92; PULSE 94; RESP 20; TEMP 36.9; O2SAT 96
[2024-07-16] MEDS: MG HYD/AL HYD/SIME (Maalox Reg) SUSP 30 ML UDC PO (23:03)
[2024-07-16] MEDS: ONDANSETRON ODT 4 MG TABRAP PO (23:03)
[2024-07-16] MEDS: FAMOTIDINE 20 MG TABLET 40 MG PO (23:03)
[2024-07-16 23:10] LABS: Basophils # (Auto) 0.1 Thou/mm3 (0.0-0.2); Basophils % (Auto) 1 % (0-2.5); Eosinophils # (Auto) 0.1 Thou/mm3 (0.0-0.5); Eosinophils % (Auto) 2 % (0-10); Hematocrit 36.1 % (36.0-46.0); Hemoglobin 12.2 g/dL (12.0-16.0); Immature Granulocytes % (Auto) 0 % (0-0); Immature Granulocytes Auto 0.01 Thou/mm3 (0.00-0.00); Lymphocytes # (Auto) 1.8 Thou/mm3 (1.0-4.8); Lymphocytes % (Auto) 26 % (10-50); Mean Corpuscular HGB Conc 33.8 g/dl (31.0-37.0); Mean Corpuscular Hemoglobin 27.9 pg (25.0-35.0); Mean Corpuscular Volume 82 fL (80-100); Monocytes # (Auto) 0.7 Thou/mm3 (0.0-0.8); Monocytes % (Auto) 11 % (0-12); Neutrophils # (Auto) 4.1 Thou/mm3 (1.8-7.7); Neutrophils % (Auto) 61 % (37-80); Nucleated Red Blood Cell % 0 /100 WBC (0); Platelet Count 252 Thou/mm3 (140-440); RDW Standard Deviation 39.1 fL (36.4-46.3); Red Blood Count 4.38 Miln/mm3 (4.00-5.20); White Blood Count 6.8 Thou/mm3 (3.6-11.0)
[2024-07-16 23:32] LABS: Alanine Aminotransferase 15 U/L (10-49); Albumin, Serum 4.4 gm/dL (3.4-4.8); Albumin/Globulin Ratio 1.3 (1.2-2.2); Alkaline Phosphatase 112 U/L (46-116); Anion Gap 7 (7-16); Aspartate Amino Transferase 21 U/L (0-34); BUN/Creatinine Ratio 16 Ratio (12-20); Bilirubin,Total 0.9 mg/dL (0.3-1.2); Blood Urea Nitrogen 18 mg/dL (9-23); Calcium 9.1 mg/dL (8.3-10.6); Calcium (Corrected) 9.1 mg/dL (8.5-10.1); Carbon Dioxide 30.1 mMol/L (20.0-31.0); Chloride 105 mMol/L (98-107); Creatinine (Component) 1.1 mg/dL (0.6-1.3); Estimated Creatinine Clearance 41.3 mL/min (>60); Globulin 3.3 gm/dL (2.3-3.5); Glucose 119 mg/dL (74-106); Lipase 42 U/L (12-53); Osmolality,Calculated 286 (275-295); Potassium 3.6 mMol/L (3.4-5.1); Sodium 142 mMol/L (136-145); Total Protein 7.7 gm/dL (5.7-8.2); Troponin I < 0.002 ng/mL (0.0-0.045); eGFR 54 See Note
[2024-07-17 01:09] LABS: D-Dimer 676 ng/mL (<600)
--- NOTE | 2024-07-17 01:13 | XR_ITS ---
Examination: CTA chest with intravenous contrast 2-D reconstructions 3-D reconstructions, vascular Date and time of exam: July 17, 2024, 0322 hours INDICATIONS: Chest pain and shortness of breath beginning 2 days ago CTDI: vol (mGy) 12.7 DLP: (mGycm) 461 Technique: Multiple axial sections of the thorax have been obtained. 3 mm slice thickness, from below the hemidiaphragms to above the apices of the lungs. Mediastinal and lung density settings have been obtained. 2-D sagittal and coronal reconstructions. 3-D angiographic renderings, 3-D volume renderings, 3D post processing, vascular maximum intensity projections obtained. Contrast administered is 100 cc Isovue 370 intravenous. Low dose protocols were performed. One or more of the following dose reduction techniques were used; automated exposure control, adjustment of the mA and/or KV according to patient size, use of iterative reconstruction technique. Findings: No thoracic aortic aneurysmal dilatation Pulmonary artery segments are not enlarged. No pulmonary artery filling defects. No pneumonia or pulmonary edema No visualized liver or splenic lesion. Contracted gallbladder IMPRESSION: Negative for pulmonary artery emboli No pneumonia or pulmonary edema
--- NOTE | 2024-07-17 01:28 | XR_ITS ---
Examination: CT abdomen with intravenous contrast CT pelvis with intravenous contrast 2-D coronal reconstructions 2-D sagittal reconstructions INDICATIONS: Epigastric pain onset today Date and time of exam:July 17, 2024 1522 hours Comparison January 12, 2022. CTDI: vol (mGy) 15.6 DLP: (mGycm) 794 Technique: Multiple axial sections of the abdomen and pelvis have been obtained. 64 slice high-resolution scanner used. 3 mm axial sections have been obtained, post intravenous injection 100 cc Isovue 370 2-D sagittal, coronal reconstructions obtained. Low dose protocols were performed. One or more of the following dose reduction techniques were used; automated exposure control, adjustment of the mA and/or KV according to patient size, use of iterative reconstruction technique. Findings: No focal liver or splenic lesions Prominent mucosal edema in the stomach including gastric antrum and including the duodenal bulb Contracted gallbladder No pancreatic mass Normal adrenal glands No renal or ureteral calculi, no hydronephrosis Aorta normal size Normal appendix No bowel obstruction Anteverted uterus Urinary bladder is intact Mild osteopenia IMPRESSION: Prominent gastritis pattern. Active peptic disease duodenum Negative for pancreatitis No renal or ureteral calculi, no hydronephrosis Normal appendix
[2024-07-17 02:49] LABS: Troponin I < 0.002 ng/mL (0.0-0.045)
[2024-07-17] MEDS: MORPHINE SULF INJ 10 MG/ML VIAL 5 MG IVP (04:07)
[2024-07-17 04:12] VITALS: BP 163/90; O2SAT 96
[2024-07-17 04:13] VITALS: BP 163/90; PULSE 80; RESP 18; TEMP 36.8; O2SAT 97
[2024-07-17 04:30] VITALS: BP 167/94; O2SAT 96
--- NOTE | 2024-07-17 04:37 | PRELIM_ITS ---
CT angiogram of the chest with intravenous contrast (axial images with coronal and sagittal reconstructions) Clinical history: Epigastric/chest pain Findings: There is no filling defect in the pulmonary artery divisions to suggest pulmonary thromboembolism. No pericardial effusion is seen. The heart size is normal. Main pulmonary artery caliber is normal. There is no mediastinal, hilar or axillary adenopathy. No aortic aneurysm or dissection. Atelectasis or fibrosis in bilateral lung apices. No pleural effusion. No pneumothorax. No acute osseous process. The chest wall is unremarkable. Impression: No evidence of pulmonary thromboembolism. No acute thoracic process. Report Electronically Signed By: Dimitrios Beauchamp 07/17/2024 4:36:43 AM [EST]
--- NOTE | 2024-07-17 04:42 | PRELIM_ITS ---
CT abdomen and pelvis with intravenous contrast (axial images with coronal and sagittal reconstructions) Clinical history: Epigastric pain Findings: Distal esophageal wall thickening. Liver, gallbladder, adrenal glands, spleen, pancreas and kidneys are unremarkable. The appendix is normal, best seen on image [id number]. The urinary bladder is normal. No free intraperitoneal air or fluid. There is no adnexal cyst or mass. Bowel caliber is normal. No acute osseous process. The abdominal wall is unremarkable. Impression: Possible esophagitis. Recommend follow-up. Report Electronically Signed By: Dimitrios Beauchamp 07/17/2024 4:42:00 AM [EST]
[2024-07-17 05:00] VITALS: BP 149/86; O2SAT 96
[2024-07-17] MEDS: LIDOCAINE VISCOUS 2% 15 ML UDC PO (05:18)
[2024-07-17 05:35] VITALS: BP 128/78; PULSE 78; RESP 18; TEMP 37; O2SAT 97
--- NOTE | 2024-07-17 05:37 | PD.EDCHEST ---
ED Chest Pain RME/HPI General Chief Complaint: Chest Pain Stated Complaint: BURNING IN CHEST Time Seen by Provider: 07/16/24 22:40 Arrival date/time: 07/16/24 21:58 68F with history of throat cancer (10 years remission), HTN, hypothyroidism, and CKD presents to ED with 1 day of burning CP that radiates to back. Limitations: no limitations Related Data Home Medications ?Medication ?Instructions ?Recorded ?Confirmed ondansetron 4 mg disintegrating 4 mg PO Q4-5H PRN Nausea 01/13/23 05/04/24 tablet Previous Rx's ?Medication ?Instructions ?Recorded acetaminophen 500 mg tablet 500 mg PO [id number] PRN Pain, Mild 03/12/23 #30 tabs omeprazole 40 mg capsule,delayed 40 mg PO QDAY #30 caps 03/12/23 release betamethasone dipropionate 0.05 % 1 applic topical QDAY #45 grams 07/07/23 topical ointment tramadol 50 mg tablet 50 mg PO Q6H PRN pain #30 tabs 08/16/23 levothyroxine 25 mcg capsule 25 mcg PO QDAY #60 caps 12/22/23 pilocarpine HCl 5 mg tablet 10 mg (2 x 5 mg) PO TID 30 days 01/06/24 #180 tabs amlodipine 2.5 mg tablet 2.5 mg PO QDAY 30 days #30 tabs 01/20/24 atorvastatin 40 mg tablet 40 mg PO QHS #30 tabs 01/20/24 ergocalciferol (vitamin D2) 1,250 1,250 mcg PO QWEEK #4 caps 01/20/24 mcg (50,000 unit) capsule acetaminophen 300 mg-codeine 30 mg 2 tab PO TID PRN pain #20 tabs 03/16/24 tablet ibandronate 150 mg tablet 150 mg PO QMONTH #3 tabs 04/08/24 diphenhydramine-zinc acetate 2 1 applic topical TID #28.3 grams 05/04/24 %-0.1 % topical cream (Benadryl Extra Strength) cyclobenzaprine 10 mg tablet 10 mg PO TID PRN muscle spasm #20 06/05/24 tabs lidocaine HCl 2 % mucosal solution 5 ml PO BID PRN throat pain #100 mL 07/17/24 (Lidocaine Viscous) Allergies Allergy/AdvReac Type Severity Reaction Status Date / Time No Known Allergies Allergy Verified 06/05/24 15:03 Review of Systems Review of Systems Systems Reviewed: All systems reviewed, normal except as documented Constitutional Constitutional: Reports system reviewed and no additional complaints, except as documented, Denies fever(s) and Denies headache(s) ENT Ears, Nose, Mouth, and Throat: Denies disequilibrium and Denies headache(s) Cardiovascular Cardiovascular: Reports system reviewed and no additional complaints, except as documented, Reports as per HPI, Reports chest pain and Denies dyspnea Respiratory Respiratory: Reports system reviewed and no additional complaints, except as documented, Denies cough and Denies dyspnea Gastrointestinal Gastrointestinal: Reports system reviewed and no additional complaints, except as documented, Reports as per HPI, Reports abdominal pain, Denies nausea and Denies vomiting Neurologic Neurologic: Reports system reviewed and no additional complaints, except as documented, Denies confusion, Denies disequilibrium and Denies headache(s) Psychiatric Psychiatric: Denies confusion Past Medical History Past Medical History NEUROLOGIC: Positive Neurological Disorders and Migraine; Negative Seizures CARDIAC: Positive Hypertension; Negative Cardiac Disorders or Congestive Heart Failure RESPIRATORY: Negative Chronic Obstructive Pulmonary Disease (COPD) or Asthma GASTROINTESTINAL: Positive Gastrointestinal Disorders and Gastroesophageal Reflux Disease GENITOURINARY: Positive Genitourinary Disorders and Kidney Stones; Negative Renal Disease MUSCULOSKELETAL: Positive Musculoskeletal Disorders ENT: Positive Cataracts ENDOCRINE: Positive Hypothyroidism; Negative Diabetes Mellitus Type 1 or Diabetes Mellitus Type 2 HEMATOLOGIC: Negative Blood Disorders or Sickle Cell Disease PSYCHO/SOCIAL: Negative Depression or Anxiety OTHER HISTORY: Positive Chemotherapy, Radiation Therapy and Cancer; Negative Autoimmune Disease, Blood Transfusions, Blood Transfusion Reaction, Anesthesia Reactions, MRSA, VRSA, Vancomycin-Resistant Enterococci or Clostridium Difficile Family History FAMILY HISTORY: Negative Family Psychiatric Problems, Family Respiratory Disorders, Family Cardiac Disorders, Family Gastrointestinal Problems, Family Cancer, Family Surgery or Family Anesthesia Reaction Social History SMOKING STATUS: Never smoker SUBSTANCE USE: does not use ED Exam General Limitations: Present no limitations General appearance: Present alert and in no apparent distress Head Head exam: Present atraumatic Eye Eye exam: Present normal appearance, PERRL and EOMI ENT ENT exam: Present normal exam, normal oropharynx and mucous membranes moist Neck Neck exam: Present normal inspection, full ROM and trachea midline Chest Chest inspection: Present normal inspection and symmetric chest wall rise Respiratory Respiratory exam: Present normal lung sounds bilaterally Cardiovascular Cardiovascular exam: Present regular rate, normal rhythm and normal heart sounds Abdominal Exam Abdominal exam: Present soft and normal bowel sounds Extremities Exam Extremities exam: Present normal inspection and full ROM Back Exam Back exam: Present normal inspection and full ROM Neurological Exam Neurological exam: Present alert, oriented X3 and CN II-XII intact Psychiatric Psychiatric exam: Present normal affect and normal mood Skin Skin exam: Present warm, dry, intact and normal color Course Quality Measures none Orders Category Date Time Status CT Screening NOW Care 07/17/24 01:[address] Screening NOW Care 07/17/24 01:28 Completed EKG (ED ONLY) *Do not use* NOW Care 07/16/24 22:07 Completed Insert IV NOW Care 07/17/24 00:[address] abdomen pelvis w con Stat Exams 07/17/24 01:[address] angio chest Stat Exams 07/17/24 01:13 Taken EKG (ED Only) Stat Exams 07/16/24 22:07 Draft CBC Stat Lab 07/16/24 22:52 Completed CMP [Comprehensive Metabolic Panel] Stat Lab 07/16/24 22:52 Completed D-Dimer Stat Lab 07/17/24 00:41 Completed Lipase Stat Lab 07/16/24 22:52 Completed Troponin I Stat Lab 07/16/24 22:52 Completed Troponin I Stat Lab 07/17/24 02:19 Completed Famotidine [Pepcid] Med 07/16/24 22:41 Discontinued 40 mg PO X1 ONE Lidocaine 2% Viscous [Xylocaine 2% Viscous] Med 07/17/24 05:06 Discontinued 15 ml PO X1 ONE Morphine Inj Med 07/17/24 00:40 Discontinued 5 mg IVP X1 ONE Ondansetron Odt [Zofran Odt] Med 07/16/24 22:41 Discontinued 4 mg PO X1 ONE mg Hyd/Al Hyd/Malissa Susp [Maalox Susp] Med 07/16/24 22:41 Discontinued 30 ml PO X1 ONE Vital Signs Vital signs: Vital Signs Temperature 98.5 F 07/16/24 22:28 Pulse Rate 94 07/16/24 22:28 Respiratory Rate 20 07/16/24 22:28 Blood Pressure 171/92 H 07/16/24 22:28 Pulse Oximetry (%) 96 07/16/24 22:28 Oxygen Delivery Method Room Air 07/16/24 22:28 O2 at 96% on RA and WNLs Chest Pain MDM Narrative MDM Narrative:: 68F with history of throat cancer (10 years remission), HTN, hypothyroidism, and CKD presents to ED with 1 day of burning CP that radiates to back. Physical exam reveals mild epigastric tenderness. Clear lungs. Normal WOB. RRR. Patient is afebrile, alert, but appears to be in pain. EKG is NSR. No leukocytosis. CMP unremarkable. Trop 2x normal. D-dimer minimally elevated. CTA possible esophagitis. CT normal. 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 Patient data External records reviewed:: [facility] previous records Clinical information provided by:: patient Social determinants that could affect healthcare access:: none Patient has the following chronic illnesses:: throat cancer (10 years remission), HTN, hypothyroidism, and CKD How is presenting disease/condition affected by chronic disease/condition?: exacerbated by Evaluation data The following diagnostics were reviewed and interpreted by me:: lab results, radiology exam(s) and EKG tracing(s) Lab and/or radiology exams considered but not ordered:: ordered Interpretation Summary: above Medications / Prescriptions Medications or Prescriptions considered but not ordered:: ordered Medication administrations:: Medication Administration History Discontinued Medications Al Hydrox/Mg Hydrox/Simethicone (Mg Hyd/Al Hyd/Malissa (Maalox Reg) Susp 30 Ml Udc) 30 ml PO X1 ONE Stop: 07/16/24 22:42 Last Admin: 07/16/24 23:03 Dose: 30 ml Documented By: HOWARD Famotidine (Famotidine 20 Mg Tablet) 40 mg PO X1 ONE Stop: 07/16/24 22:42 Last Admin: 07/16/24 23:03 Dose: 40 mg Documented By: HOWARD Lidocaine HCl (Lidocaine Viscous 2% 15 Ml Udc) 15 ml PO X1 ONE Stop: 07/17/24 05:07 Last Admin: 07/17/24 05:18 Dose: 15 ml Documented By: MICHAEL Morphine Sulfate (Morphine Sulf Inj 10 Mg/Ml Vial) 5 mg IVP X1 ONE Stop: 07/17/24 00:41 Last Admin: 07/17/24 04:07 Dose: 5 mg Documented By: MICHAEL Ondansetron HCl (Ondansetron Odt 4 Mg Tabrap) 4 mg PO X1 ONE; Protocol Stop: 07/16/24 22:42 Last Admin: 07/16/24 23:03 Dose: 4 mg Documented By: HOWARD above Consultations Consultation(s) initiated? (list below): No Diagnosis Chest Pain Differential Diagnosis: fracture of rib, pneumothorax, stable angina, unstable angina pectoris, atypical chest pain, st elevation myocardial infarction, costochondritis, chest pain, biliary colic and other (aortic dissection, gastritis, esophagitis) Most likely diagnosis given after review of the tests above:: esophagitis Admission Indicated Admission indicated?: not indicated Admission Request Was there a request for admission?: No Disposition Plan Disposition Plan: Discharge Discharge Attestation Discharge Attestation: The patient and all family members were given an opportunity to ask questions and understood the discharge instructions. Discharge instructions specifically effects, indications for sooner follow up or return to the emergency department, and the expected course of current diagnosis. Patient condition: Stable Discharge Plan Plan Patient Disposition: HOME (Self Care) Disposition Comment: Stable Prescriptions/Referrals Prescriptions/Med Rec: New lidocaine HCl [Lidocaine Viscous] 2 % solution 5 ml PO BID PRN (Reason: throat pain) Qty: 100 0RF No Action acetaminophen 500 mg tablet 500 mg PO [id number] PRN (Reason: Pain, Mild) Qty: 30 0RF omeprazole 40 mg capsule,delayed release(DR/EC) 40 mg PO QDAY Qty: 30 0RF ibandronate 150 mg tablet 150 mg PO QMONTH Qty: 3 2RF betamethasone dipropionate 0.05 % ointment 1 applic topical QDAY Qty: 45 0RF pilocarpine HCl 5 mg tablet 10 mg PO TID 30 Days Qty: 180 3RF amlodipine 2.5 mg tablet 2.5 mg PO QDAY 30 Days Qty: 30 2RF atorvastatin 40 mg tablet 40 mg PO QHS Qty: 30 2RF ergocalciferol (vitamin D2) 1,250 mcg (50,000 unit) capsule 1,250 mcg PO QWEEK Qty: 4 2RF Benadryl Extra Strength 2-0.1 % cream 1 applic topical TID Qty: 28.3 0RF levothyroxine 25 mcg capsule 25 mcg PO QDAY Qty: 60 1RF acetaminophen-codeine 300-30 mg tablet 2 tab PO TID MDD 6 PRN (Reason: pain) Qty: 20 0RF cyclobenzaprine 10 mg tablet 10 mg PO TID PRN (Reason: muscle spasm) Qty: 20 0RF ondansetron 4 mg tablet,disintegrating 4 mg PO Q4-5H PRN (Reason: Nausea) Patient Comments: DISSOLVE 1 TABLET ON THE TONGUE EVERY 4-6 HOURS NEEDED FOR NAUSEA FOR 14 DAYS tramadol 50 mg tablet 50 mg PO Q6H PRN (Reason: pain) Qty: 30 0RF Referrals: No Primary/Family,Physician [Primary Care Provider] - In 1 week Problem List Clinical Impression: Esophagitis Patient/Caregiver Discharge Instructions Education Materials: Esophagitis Additional Instructions: Please follow-up with PCP within 24-48 hours and return immediately if symptoms worsen. Need to see oncologist or GI specialist for endoscopy. Print Language: Uzbek Stand Alone Forms: Patient Portal Info Letter PA/TURN LASTER Supervising Physician MARCELLE/TORREY Supervising Physician: Dr. Dowd
== END 2024-07-17 05:42 | disposition home or self-care (01) ==
PROVIDERS: Physician Assistant; Emergency Provider Emergency Medicine
DX: K20.90 Esophagitis, unspecified without bleeding (principal); E03.9 Hypothyroidism, unspecified; I12.9 Hypertensive chronic kidney disease with stage 1 through stage 4 chronic kidney disease, or unspecified chronic kidney disease; N18.9 Chronic kidney disease, unspecified; Z85.818 Personal history of malignant neoplasm of other sites of lip, oral cavity, and pharynx
CPT/HCPCS: 36415; 71275; 74177; 80053; 83690; 84484; 85025; 85379; 93005; 99284; A4649; J2270; J3490; Q0162; Q9967; A9270

== ENCOUNTER 2024-07-20 09:30 | Outpatient (AMB) | payer MEDICAID, SELFPAY ==
--- NOTE | 2024-07-20 09:52 | PD.RESCLINIC ---
Vital Signs 07/20/24 09:53 Height 1.57 m Height Method Stated Weight 61.859 kg Weight Measurement Method Standing Scale BMI 25.0 BP 130/75 Blood Pressure Source Automatic Cuff Blood Pressure Location Right Upper Arm Position Sitting Respiration 18 Pulse 74 Pulse Source Monitor Temp 98.2 F Temp Source Temporal Artery Scan Pulse Oximetry (%) 98 Oxygen Delivery Method Room Air Allergies/Meds Allergies & Medications Allergies No Known Allergies Allergy (Verified 07/20/24 09:54) Medication Reconciliation ondansetron 4 mg disintegrating tablet 4 mg PO Q4-5H PRN Nausea 01/13/23 [History Confirmed 07/20/24] acetaminophen 500 mg tablet 500 mg PO [id number] PRN Pain, Mild #30 tabs 03/12/23 [Rx Confirmed 07/20/24] omeprazole 40 mg capsule,delayed release 40 mg PO QDAY #30 caps 03/12/23 [Rx Confirmed 07/20/24] betamethasone dipropionate 0.05 % topical ointment 1 applic topical QDAY #45 grams 07/07/23 [Rx Confirmed 07/20/24] tramadol 50 mg tablet 50 mg PO Q6H PRN pain #30 tabs 08/16/23 [Rx Confirmed 07/20/24] levothyroxine 25 mcg capsule 25 mcg PO QDAY #60 caps 12/22/23 [Rx Confirmed 07/20/24] pilocarpine HCl 5 mg tablet 10 mg (2 x 5 mg) PO TID 30 days #180 tabs 01/06/24 [Rx Confirmed 07/20/24] amlodipine 2.5 mg tablet 2.5 mg PO QDAY 30 days #30 tabs 01/20/24 [Rx Confirmed 07/20/24] atorvastatin 40 mg tablet 40 mg PO QHS #30 tabs 01/20/24 [Rx Confirmed 07/20/24] ergocalciferol (vitamin D2) 1,250 mcg (50,000 unit) capsule 1,250 mcg PO QWEEK #4 caps 01/20/24 [Rx Confirmed 07/20/24] acetaminophen 300 mg-codeine 30 mg tablet 2 tab PO TID PRN pain #20 tabs 03/16/24 [Rx Confirmed 07/20/24] ibandronate 150 mg tablet 150 mg PO QMONTH #3 tabs 04/08/24 [Rx Confirmed 07/20/24] Held on 07/20/24. Instructions: Doctor's Order diphenhydramine-zinc acetate 2 %-0.1 % topical cream (Benadryl Extra Strength) 1 applic topical TID #28.3 grams 05/04/24 [Rx Confirmed 07/20/24] cyclobenzaprine 10 mg tablet 10 mg PO TID PRN muscle spasm #20 tabs 06/05/24 [Rx Confirmed 07/20/24] lidocaine HCl 2 % mucosal solution (Lidocaine Viscous) 5 ml PO BID PRN throat pain #100 mL 07/17/24 [Rx Confirmed 07/20/24] denosumab 60 mg/mL subcutaneous syringe 60 mg subcut .[id number] #1 mL 07/20/24 [Rx] sucralfate 100 mg/mL oral suspension (Carafate) 10 ml PO BID #1,000 mL 07/20/24 [Rx] MA Intake Visit Data Collection New Patient or Established: Established Patient (seen at [facility] within 3 years) Seen by Clinical Staff ONLY (RN/MA): No Pain Present Currently: No Pain scale:: 0 Pain Scale Used: Darby-Marlow/Numerical [place] Required: Yes PCP or OBGYN visit in last 3 months: No Hx Now: No Do You Feel Safe at Home: Yes Authorities Contacted: N/A Smoking Status Smoking Status: Never smoker Immunization / Flu Flu Vaccine in the Last 12 Months: No Flu Vaccine Exclusion Criteria: No Exclusion Criteria Past Medical History Past Medical History NEUROLOGIC: Positive Neurological Disorders and Migraine; Negative Seizures CARDIAC: Positive Hypertension; Negative Cardiac Disorders or Congestive Heart Failure RESPIRATORY: Negative Chronic Obstructive Pulmonary Disease (COPD) or Asthma GASTROINTESTINAL: Positive Gastrointestinal Disorders and Gastroesophageal Reflux Disease GENITOURINARY: Positive Genitourinary Disorders and Kidney Stones; Negative Renal Disease ENT: Positive Cataracts ENDOCRINE: Positive Hypothyroidism; Negative Diabetes Mellitus Type 1 or Diabetes Mellitus Type 2 HEMATOLOGIC: Negative Blood Disorders or Sickle Cell Disease PSYCHO/SOCIAL: Negative Depression or Anxiety OTHER HISTORY: Positive Chemotherapy, Radiation Therapy and Cancer; Negative Autoimmune Disease, Blood Transfusions, Blood Transfusion Reaction, Anesthesia Reactions, MRSA, VRSA, Vancomycin-Resistant Enterococci or Clostridium Difficile Family History FAMILY HISTORY: Negative Family Psychiatric Problems, Family Respiratory Disorders, Family Cardiac Disorders, Family Gastrointestinal Problems, Family Cancer, Family Surgery or Family Anesthesia Reaction Social History SMOKING STATUS: Smoking status: Never smoker ALCOHOL: Alcohol Intake: Never HOUSING: Housing: House LIVES WITH: Lives With: Family Patient Portal Karl Social History Living Situation History Housing: House Tobacco History Smoking Status: Never smoker Alcohol History Alcohol Intake: Never Domestic Abuse History Do You Feel Safe at Home: Yes Review of Systems Report any current symptoms Only answer those that you have currently: Past Medical History Past Medical History Have you ever been diagnosed with any of the following: Neurological Problems Seizures: No Migraine: Yes Cardiology Problems Congestive Heart Failure: No Hypertension: Yes Respiratory Problems Chronic Obstructive Pulmonary Disease (COPD): No Asthma: No Stomache/Intestinal Problems Gastroesophageal Reflux Disease: Yes Genital/Urinary Problems Renal Disease: No Kidney Stones: Yes Head,Eye,Nose,Throat Problems Cataracts: Yes Endocrine Problems Diabetes Mellitus Type 1: No Diabetes Mellitus Type 2: No Hypothyroidism: Yes Blood Problems Sickle Cell Disease: No Psychologic Problems Depression: No Anxiety: No Other Problems Autoimmune Disease: No Blood Transfusions: No Blood Transfusion Reaction: No Anesthesia Reactions: No Chemotherapy: Yes Radiation Therapy: Yes MRSA: No VRSA: No Vancomycin-Resistant Enterococci: No Clostridium Difficile: No Cancer: Yes History of Present Illness HPI Narrative A 67-year-old female patient known case of hypertension, CKD, cataract surgery, hypothyroidism, 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 Patient reported that for the past few days she has reported that she has dizziness in which she went to the ED and she was prescribed Tylenol, ibuprofen, and underwent earwax cleaning. She reported significant improvement of her symptoms however she still have some mild dizziness that is not related to position. She denied any tinnitus and denied any nausea or vomiting. She reported that her blood pressure usually normal and she stopped taking her blood pressure medications amlodipine. In review of other system patient mentioned that she has mild hip pain in which she takes Tylenol and resolved her symptoms. DEXA scan came back today and showed osteoporosis of the vertebral bones of -2.8. 05/04/2024 Todat patient presented due to excessive itching on her hands, forarms and face, that appears on the exposed areas, She denied any fever or chills, however she reported fascial puffiness and itching. Of note patient was referred to therapeutic sales specialist in [place] after her skin biopsy came back positive for Allergic dermatitis, in which he recommended to stop all the medications and resummed some of these meds gradually, and she was given a course of methylprednisolone for one week orally which resolved her symptoms, however yesterday was her last pill and her itching returned again. She mentioned that she used Zyrtec 5 once at bed time however it did not help. The patient next appointment with the therapeutic sales specialist is on the this month. On review of other system she reproeted that she was referred last month to an ENT due to her dizziness and hearing loss, she was prescribed hearing aid however we asked the patient to ask for a copy of the medical record. Today she reported that she still has mild dizziness that last for few seconds assoicated with change of position, denied any N/V. 07/20/2024 Patient came today after she was admitted to the ED for burning chest pain that was radiating to the back, Patient reported that the pain was so severe and she could not tolerate feeding at that time. She mentions that the pain was worse whenever she eats anything solid or hot food. On questioning about her meds her care provider mentioned that her pain started at the same day when she took her osteoporosis medication. Patient went to the ED her vitals were normal, EKG with no ischemic changes Labs were within her usual state, Lipase was normal, Trops 2 times within normal limits, CTA was negative for PE, CT Abdomen and pelvce showed Prominent mucosal edema in the stomach including gastric antrum and including the duodenal bulb, and active duodenal ulcer. Review of Systems Review of Systems Systems Reviewed: All systems reviewed, normal except as documented Objective/Exam Narrative Physical exam: GEN: AOx3, able to speak full sentences, Seems to gain weight, HEENT: NC/AC, Face looks puffy, oral mucosa dry, neck supple CVS: RRR, S1-S2 present, no murmurs appreciated RESP: CTAB GI: soft, epigastric tenderness, NBS MSK: able to move all 4 limbs, no lower extremity edema SKIN: brownish rash on the forearms with no excoriation barnes. and discharge. LITHOGRAPHIC GENERAL WORKER: CN II-XII and Sensation grossly intact. Assessment & Plan Diagnosis / Problem List (1) Age related osteoporosis: Status: Acute Qualifiers: Presence of current pathological fracture: without current pathological fracture Qualified Code(s): M81.0 - Age-related osteoporosis without current pathological fracture Additional Assessment Patient repoted severe burning epigastric pain that made her go to the ED, The pain started after she took her Ibandronate pill. Patient went to the ED her vitals were normal, EKG with no ischemic changes Labs were within her usual state, Lipase was normal, Trops 2 times within normal limits, CTA was negative for PE, CT Abdomen and pelvce showed Prominent mucosal edema in the stomach including gastric antrum and including the duodenal bulb, and active duodenal ulcer. Patient most likely has Pill induced gasteritis and esophygitis. She reprorted improvement of her sx after she went to the ED and her oral intake improved significantly. Initially we strated the patient on Ibandronate which is a monthly pill to metigate the risk of developing such complications as the patient has a long hx of GERD, however it seems that this plan did not stop the patient from going to this type of complications. Her Ca level 9.6 Additional Plan - Stop Ibandronate - Denusomab Discussion of risk and benefits with the patient was coducted, patient agreed to the plan - Will order for the patient - Sucralfate BID qday for one month Advanced Care Planning Advance care planning discussed with:: patient and child Office Procedures [facility] Level of Care Nursing/Assessment Patient Status: Established Patient Nursing Assessment/Reassessment: Medication Reconciliation, Update PMH in EMR and Vital Signs Coordination of Care: Complex Care and Chronic Disease 1-5, Consent,records obtained, informed consent, Education Simp Pt/Fam and Staff clarify orders Established Patient Charge Established Patient Point Assignment: 85 Established Patient Point Charge: EP Level 3 (80-115)
[2024-07-20 09:53] VITALS: BP 130/75; PULSE 74; RESP 18; TEMP 36.8; O2SAT 98; BMI 25.0
== END 2024-07-20 10:27 | disposition home or self-care (01) ==
LOC: HODAHC 09:30
PROVIDERS: Supervising Provider Internal Medicine; Visit Provider Student in an Organized Health Care Education/Training Program
DX: M81.0 Age-related osteoporosis without current pathological fracture (principal); K21.9 Gastro-esophageal reflux disease without esophagitis; K26.9 Duodenal ulcer, unspecified as acute or chronic, without hemorrhage or perforation
CPT/HCPCS: 99213; G0463

== ENCOUNTER 2024-08-24 09:27 | Outpatient (AMB) | payer MEDICAID, SELFPAY ==
[2024-08-24 09:45] VITALS: BP 121/71; PULSE 69; RESP 18; TEMP 36.6; O2SAT 96; BMI 25.4
--- NOTE | 2024-08-24 09:45 | PD.RESCLINIC ---
Vital Signs 08/24/24 09:45 Height 1.57 m Height Method Stated Weight 62.709 kg Weight Measurement Method Standing Scale BMI 25.4 BP 121/71 Blood Pressure Source Automatic Cuff Blood Pressure Location Right Upper Arm Position Sitting Respiration 18 Pulse 69 Pulse Source Monitor Temp 97.8 F Temp Source Temporal Artery Scan Pulse Oximetry (%) 96 Oxygen Delivery Method Room Air Allergies/Meds Allergies & Medications Allergies No Known Allergies Allergy (Verified 08/24/24 09:46) Medication Reconciliation ondansetron 4 mg disintegrating tablet 4 mg PO Q4-5H PRN Nausea 01/13/23 [History Confirmed 08/24/24] acetaminophen 500 mg tablet 500 mg PO [id number] PRN Pain, Mild #30 tabs 03/12/23 [Rx Confirmed 08/24/24] omeprazole 40 mg capsule,delayed release 40 mg PO QDAY #30 caps 03/12/23 [Rx Confirmed 08/24/24] betamethasone dipropionate 0.05 % topical ointment 1 applic topical QDAY #45 grams 07/07/23 [Rx Confirmed 08/24/24] tramadol 50 mg tablet 50 mg PO Q6H PRN pain #30 tabs 08/16/23 [Rx Confirmed 08/24/24] levothyroxine 25 mcg capsule 25 mcg PO QDAY #60 caps 12/22/23 [Rx Confirmed 08/24/24] pilocarpine HCl 5 mg tablet 10 mg (2 x 5 mg) PO TID 30 days #180 tabs 01/06/24 [Rx Confirmed 08/24/24] amlodipine 2.5 mg tablet 2.5 mg PO QDAY 30 days #30 tabs 01/20/24 [Rx Confirmed 08/24/24] atorvastatin 40 mg tablet 40 mg PO QHS #30 tabs 01/20/24 [Rx Confirmed 08/24/24] ergocalciferol (vitamin D2) 1,250 mcg (50,000 unit) capsule 1,250 mcg PO QWEEK #4 caps 01/20/24 [Rx Confirmed 08/24/24] acetaminophen 300 mg-codeine 30 mg tablet 2 tab PO TID PRN pain #20 tabs 03/16/24 [Rx Confirmed 08/24/24] diphenhydramine-zinc acetate 2 %-0.1 % topical cream (Benadryl Extra Strength) 1 applic topical TID #28.3 grams 05/04/24 [Rx Confirmed 08/24/24] cyclobenzaprine 10 mg tablet 10 mg PO TID PRN muscle spasm #20 tabs 06/05/24 [Rx Confirmed 08/24/24] lidocaine HCl 2 % mucosal solution (Lidocaine Viscous) 5 ml PO BID PRN throat pain #100 mL 07/17/24 [Rx Confirmed 08/24/24] sucralfate 100 mg/mL oral suspension (Carafate) 10 ml PO BID #1,000 mL 07/20/24 [Rx Confirmed 08/24/24] denosumab 60 mg/mL subcutaneous syringe 60 mg subcut Q6M #1 mL 08/24/24 [Rx] dimethicone-colloidal oatmeal 1.25 % lotion (Aveeno Daily Moisturizing) 1 ea topical QDAY #354 mL 08/24/24 [Rx] MA Intake Visit Data Collection New Patient or Established: Established Patient (seen at [facility] within 3 years) Seen by Clinical Staff ONLY (RN/DORIS): No Pain Present Currently: No Pain scale:: 0 Pain Scale Used: Darby-Marlow/Numerical Industrial Arts Teacher Required: No PCP or OBGYN visit in last 3 months: No Hx Now: No Do You Feel Safe at Home: Yes Authorities Contacted: N/A Smoking Status Smoking Status: Never smoker Immunization / Flu Flu Vaccine in the Last 12 Months: No Flu Vaccine Exclusion Criteria: No Exclusion Criteria Past Medical History Past Medical History NEUROLOGIC: Positive Neurological Disorders and Migraine; Negative Seizures CARDIAC: Positive Hypertension; Negative Cardiac Disorders or Congestive Heart Failure RESPIRATORY: Negative Chronic Obstructive Pulmonary Disease (COPD) or Asthma GASTROINTESTINAL: Positive Gastrointestinal Disorders and Gastroesophageal Reflux Disease GENITOURINARY: Positive Genitourinary Disorders and Kidney Stones; Negative Renal Disease ENT: Positive Cataracts ENDOCRINE: Positive Hypothyroidism; Negative Diabetes Mellitus Type 1 or Diabetes Mellitus Type 2 HEMATOLOGIC: Negative Blood Disorders or Sickle Cell Disease PSYCHO/SOCIAL: Negative Depression or Anxiety OTHER HISTORY: Positive Chemotherapy, Radiation Therapy and Cancer; Negative Autoimmune Disease, Blood Transfusions, Blood Transfusion Reaction, Anesthesia Reactions, MRSA, VRSA, Vancomycin-Resistant Enterococci or Clostridium Difficile Family History FAMILY HISTORY: Negative Family Psychiatric Problems, Family Respiratory Disorders, Family Cardiac Disorders, Family Gastrointestinal Problems, Family Cancer, Family Surgery or Family Anesthesia Reaction Social History SMOKING STATUS: Smoking status: Never smoker ALCOHOL: Alcohol Intake: Never HOUSING: Housing: House LIVES WITH: Lives With: Family Patient Portal Karl Social History Living Situation History Housing: House Tobacco History Smoking Status: Never smoker Alcohol History Alcohol Intake: Never Domestic Abuse History Do You Feel Safe at Home: Yes Review of Systems Report any current symptoms Only answer those that you have currently: Past Medical History Past Medical History Have you ever been diagnosed with any of the following: Neurological Problems Seizures: No Migraine: Yes Cardiology Problems Congestive Heart Failure: No Hypertension: Yes Respiratory Problems Chronic Obstructive Pulmonary Disease (COPD): No Asthma: No Stomache/Intestinal Problems Gastroesophageal Reflux Disease: Yes Genital/Urinary Problems Renal Disease: No Kidney Stones: Yes Head,Eye,Nose,Throat Problems Cataracts: Yes Endocrine Problems Diabetes Mellitus Type 1: No Diabetes Mellitus Type 2: No Hypothyroidism: Yes Blood Problems Sickle Cell Disease: No Psychologic Problems Depression: No Anxiety: No Other Problems Autoimmune Disease: No Blood Transfusions: No Blood Transfusion Reaction: No Anesthesia Reactions: No Chemotherapy: Yes Radiation Therapy: Yes MRSA: No VRSA: No Vancomycin-Resistant Enterococci: No Clostridium Difficile: No Cancer: Yes History of Present Illness HPI Narrative A 67-year-old female patient known case of hypertension, CKD, cataract surgery, hypothyroidism, 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 Patient reported that for the past few days she has reported that she has dizziness in which she went to the ED and she was prescribed Tylenol, ibuprofen, and underwent earwax cleaning. She reported significant improvement of her symptoms however she still have some mild dizziness that is not related to position. She denied any tinnitus and denied any nausea or vomiting. She reported that her blood pressure usually normal and she stopped taking her blood pressure medications amlodipine. In review of other system patient mentioned that she has mild hip pain in which she takes Tylenol and resolved her symptoms. DEXA scan came back today and showed osteoporosis of the vertebral bones of -2.8. 05/04/2024 Todat patient presented due to excessive itching on her hands, forarms and face, that appears on the exposed areas, She denied any fever or chills, however she reported fascial puffiness and itching. Of note patient was referred to clinical quality assurance specialist in [place] after her skin biopsy came back positive for Allergic dermatitis, in which he recommended to stop all the medications and resummed some of these meds gradually, and she was given a course of methylprednisolone for one week orally which resolved her symptoms, however yesterday was her last pill and her itching returned again. She mentioned that she used Zyrtec 5 once at bed time however it did not help. The patient next appointment with the clinical quality assurance specialist is on the this month. On review of other system she reproeted that she was referred last month to an ENT due to her dizziness and hearing loss, she was prescribed hearing aid however we asked the patient to ask for a copy of the medical record. Today she reported that she still has mild dizziness that last for few seconds assoicated with change of position, denied any N/V. 07/20/2024 Patient came today after she was admitted to the ED for burning chest pain that was radiating to the back, Patient reported that the pain was so severe and she could not tolerate feeding at that time. She mentions that the pain was worse whenever she eats anything solid or hot food. On questioning about her meds her care provider mentioned that her pain started at the same day when she took her osteoporosis medication. Patient went to the ED her vitals were normal, EKG with no ischemic changes Labs were within her usual state, Lipase was normal, Trops 2 times within normal limits, CTA was negative for PE, CT Abdomen and pelvce showed Prominent mucosal edema in the stomach including gastric antrum and including the duodenal bulb, and active duodenal ulcer. 08/24/2024. Patient came today due to worsening of her upper extremity skin rash. It was noticed that her rash has become more extensive and severe but at the same time it seems that it is healing. She mentioned that she was prescribed prednisone by her sales and service change leader and [place] with a taper. She was given 40 mg for 2 days followed by 20 mg for 2 days and 10 mg for 1 day which seems to be helping with her symptoms. When I asked the patient she believes that her symptoms worsen whenever she do the dishwashing at home. She also noticed that is only severe on the right side of the upper extremity mainly on the medial side. Her daughter at bedside that is resemble the the area that has contact with the water. I asked the patient if she is wearing gloves however she mentioned only wear gloves that only covers the hands but not the forearms. On review of other symptoms patient reported right knee pain and mild swelling however on examination there was no tenderness, redness or hotness. Patient reported that she takes Tylenol for her pain which helped resolve her symptoms. Regarding her osteoporosis medication denosumab she reported that she has not taken her med from the pharmacy she said that she has not given any injections. Will resend the medication again for the patient. Objective/Exam Narrative Physical exam: GEN: AOx3, able to speak full sentences, Seems to gain weight, HEENT: NC/AC, Face looks puffy, oral mucosa dry, neck supple CVS: RRR, S1-S2 present, no murmurs appreciated RESP: CTAB GI: soft, epigastric tenderness, NBS MSK: able to move all 4 limbs, no lower extremity edema SKIN: brownish rash plaques on the forearms, dry and scaly, on the medial surface of the forearm of the right upper extremity. Left side has minimal rash. With no excoriation barnes. or discharge. VISUALLY IMPAIRED TEACHER: CN II-XII and Sensation grossly intact. Assessment & Plan Diagnosis / Problem List (1) Age related osteoporosis: Status: Acute Qualifiers: Presence of current pathological fracture: without current pathological fracture Qualified Code(s): M81.0 - Age-related osteoporosis without current pathological fracture Assessment & Plan: Call the pharmacy [facility] the mentioned that they have not received the medication prescription. Plan: ? Resend denosumab again to the pharmacy 60 mg subcutaneous every 6 months ? Recommended the patient to take calcium supplements and vitamin D as prescribed (2) Knee pain: Status: Acute Qualifiers: Chronicity: unspecified Laterality: right Qualified Code(s): M25.561 - Pain in right knee Assessment & Plan: Patient reported chronic knee pain of the right side, minimal limitation of mobility. She mentions there is sometimes mild swelling however she denied any hotness or tenderness. Denied any fever or chills and denied any loss of weight or gained weight. Plan: ? Bilateral knee x-ray 3 views (3) Contact dermatitis: Status: Acute Qualifiers: Contact dermatitis trigger: unspecified trigger Contact dermatitis type: allergic Qualified Code(s): L23.9 - Allergic contact dermatitis, unspecified cause Assessment & Plan: From the patient description of the rash, physical examination which showed distribution of the lesion at the surfaces that contact the water when the patient washing dishes most likely her skin rash as a result of contact dermatitis. However her sales and service change leader specialist in [place] recommended the patient to follow-up with a shaker screen operator as she believes there is something else that prevent the resolution for symptoms. Patient reported that she has not did any dishwashing for the past 3 days. Her daughter at bedside mentions that her mother is stubborn and sometimes he continue to do the dishwashing in which she believes that it is the reason that she has the skin rash. Of note skin biopsy was done and it showed possible allergic inflammatory changes. Plan: ? Referral to shaker screen operator in [facility] ?Continue his prednisolone taper that was prescribed by the sales and service change leader for the next 3 days as prescribed ? Complete avoidance of any contact with detergent, dishwashing soap ?Okay to use [id number] moisture creams Follow-up after 1 month as a televisit after her appointment with the (4) Itching of both hands: Status: Acute Orders: Orders XR knee BI 3V 1 Day M25.569 - Pain in unspecified knee Referrals Dermatology L23.9 - Allergic contact dermatitis, unspecified cause, L29.9 - Pruritus, unspecified Advanced Care Planning Advance care planning discussed with:: patient and child Office Procedures [facility] Level of Care Nursing/Assessment Patient Status: Established Patient Nursing Assessment/Reassessment: Medication Reconciliation, Update PMH in EMR and Vital Signs Coordination of Care: Complex Care and Chronic Disease 1-5, Consent,records obtained, informed consent, Education Simp Pt/Fam, Lab and Imaging orders and Staff clarify orders Established Patient Charge Established Patient Point Assignment: 100 Established Patient Point Charge: Level 3 (80-115)
== END 2024-08-24 10:57 | disposition home or self-care (01) ==
LOC: HODAHC 09:27
PROVIDERS: Supervising Provider Internal Medicine; Visit Provider Student in an Organized Health Care Education/Training Program
DX: L23.9 Allergic contact dermatitis, unspecified cause (principal); M81.0 Age-related osteoporosis without current pathological fracture; M25.561 Pain in right knee; L29.9 Pruritus, unspecified
CPT/HCPCS: 99213; G0463

== ENCOUNTER 2024-10-16 17:50 | Emergency (ER) | payer MEDICAID, SELFPAY ==
[2024-10-16 17:53] VITALS: BMI 25.6
--- NOTE | 2024-10-16 18:03 | EKG_ITS ---
[facility] Test Date: 2024-10-16 Pat Name: DARIEL LANGFORD Department: Room: - Gender: Female Therapeutic Support Staff: : 1955 Requested By: Mathew Ag (FAY) Order Number: [id number] Reading MD: Mathew Ag (BRICK PAVING CHECKER) Measurements Intervals [place] Rate: 83 P: 72 [place]: 146 QRS: 43 QRSD: 68 T: 4 QT: 336 QTc: 396 Interpretive Statements SINUS RHYTHM Compared to ECG 07/16/2024 22:27:16 T-wave abnormality no longer present /store/S0/[id number].pdf
[2024-10-16 18:16] VITALS: BP 135/82; PULSE 85; RESP 18; TEMP 37.1; O2SAT 95
--- NOTE | 2024-10-16 18:27 | XR_ITS ---
Examination: CT brain head without contrast. 2-D sagittal coronal reconstructions Date and time of exam:October 16 vomiting thousand 1925 hours, comparison August 16, 2023 INDICATIONS: Onset dizziness today CTDI: vol (mGy):46.8 DLP: (mGycm):873 Technique: Multiple CT axial sections of the brain have been obtained, 5 mm slice thickness. Contrast has not been administered. 2-D sagittal, coronal reconstructions have been obtained Low dose protocols were performed. One or more of the following dose reduction techniques were used; automated exposure control, adjustment of the mA and/or KV according to patient size, use of iterative reconstruction technique. Findings: No significant ventricular enlargement. Intra-axial or extra-axial hemorrhage density is not seen. No mass effect or midline shift Basal cisterns are not remarkable. Fourth ventricle is midline. Cranial vault intact. Impression: Negative for acute hemorrhage, mass effect or midline shift As clinically warranted, brain MRI follow-up would best assess for acute ischemic change
--- NOTE | 2024-10-16 18:28 | PD.EDRME ---
Rapid Medical Screening Exam E Arrival date/time: 10/16/24 17:50 This is a case of 69-year-old female who came in in the emergency room due to dizziness and bilateral ear pain for 1 week patient also have allergic reaction and noted to have a erythematous rash on both upper arm denies chest pain palpitation headache numbness weakness or tingling sensation daughter states that the patient is unable to stand on his own feet Chief Complaint: Dizziness Time Seen by Provider: 10/16/24 18:24 Vital signs: Vital Signs Temperature 98.7 F 10/16/24 18:16 Pulse Rate 85 10/16/24 18:16 Respiratory Rate 18 10/16/24 18:16 Blood Pressure 135/82 H 10/16/24 18:16 Pulse Oximetry (%) 95 10/16/24 18:16 Oxygen Delivery Method Room Air 10/16/24 18:16
[2024-10-16 18:50] LABS: Basophils # (Auto) 0.0 Thou/mm3 (0.0-0.2); Basophils % (Auto) 1 % (0-2.5); Eosinophils # (Auto) 0.1 Thou/mm3 (0.0-0.5); Eosinophils % (Auto) 2 % (0-10); Hematocrit 37.9 % (36.0-46.0); Hemoglobin 12.4 g/dL (12.0-16.0); Immature Granulocytes Auto 0.01 Thou/mm3 (0.00-0.00); Lymphocytes # (Auto) 1.4 Thou/mm3 (1.0-4.8); Lymphocytes % (Auto) 42 % (10-50); Mean Corpuscular HGB Conc 32.7 g/dl (31.0-37.0); Mean Corpuscular Hemoglobin 27.7 pg (25.0-35.0); Mean Corpuscular Volume 85 fL (80-100); Monocytes # (Auto) 0.5 Thou/mm3 (0.0-0.8); Monocytes % (Auto) 13 % (0-12); Neutrophils # (Auto) 1.4 Thou/mm3 (1.8-7.7); Neutrophils % (Auto) 41 % (37-80); Nucleated Red Blood Cell # 0.00 Thou/mm3 (0.00-0.00); Nucleated Red Blood Cell % 0 /100 WBC (0); Platelet Count 230 Thou/mm3 (140-440); RDW Standard Deviation 41.2 fL (36.4-46.3); Red Blood Count 4.48 Miln/mm3 (4.00-5.20); White Blood Count 3.4 Thou/mm3 (3.6-11.0)
[2024-10-16 19:11] LABS: Alanine Aminotransferase 17 U/L (10-49); Albumin, Serum 4.2 gm/dL (3.4-4.8); Albumin/Globulin Ratio 1.4 (1.2-2.2); Alkaline Phosphatase 112 U/L (46-116); Anion Gap 8 (7-16); Aspartate Amino Transferase 28 U/L (0-34); BUN/Creatinine Ratio 15 Ratio (12-20); Bilirubin,Total 0.7 mg/dL (0.3-1.2); Blood Urea Nitrogen 19 mg/dL (9-23); Calcium 9.8 mg/dL (8.3-10.6); Calcium (Corrected) 9.8 mg/dL (8.5-10.1); Carbon Dioxide 28.9 mMol/L (20.0-31.0); Chloride 106 mMol/L (98-107); Creatinine (Component) 1.3 mg/dL (0.6-1.3); Estimated Creatinine Clearance 34.8 mL/min (>60); Globulin 3.0 gm/dL (2.3-3.5); Glucose 99 mg/dL (74-106); Osmolality,Calculated 287 (275-295); Potassium 3.9 mMol/L (3.4-5.1); Sodium 143 mMol/L (136-145); Total Protein 7.2 gm/dL (5.7-8.2); Troponin I < 0.020 ng/mL (0.0-0.045); eGFR 44 See Note
[2024-10-16 19:15] LABS: Collection Type, Urine Voided
[2024-10-16 19:23] LABS: Bilirubin,Urine Negative (Negative); Blood,Urine Negative (Negative); Clarity,Urine Clear (Clear/Hazy); Color,Urine Lt-Yellow (Lt Yel-Yel); Glucose, Urine Negative (Negative); Ketones,Urine Negative (Negative); Leukocyte Esterase,Urine Positive (Negative); Nitrite,Urine Negative (Negative); PH,Urine 8.0 (5.0-7.0); Protein,Urine Negative (Neg - Trace); RBC,Urine 1 /hpf (0-3); Specific Gravity,Urine 1.010 (1.001-1.035); Squamous Epithelial Cell,Urine 3 /hpf (0-5); Urobilinogen,Urine Negative mg/dL (0.0-1.0); WBC,Urine 2 /hpf (0-5)
--- NOTE | 2024-10-16 20:43 | PD.EDDIZZY ---
ED Dizzyness RME/HPI General Chief Complaint: Dizziness Stated Complaint: DIZZY FOR 3 DAYS, AND POSS ALLERGIC REACTION x 1 D Time Seen by Provider: 10/16/24 18:24 Arrival date/time: 10/16/24 17:50 RME / HPI RME / HPI Narrative: 69-year-old female patient came in for evaluation regarding bilateral earache. She been having worsening bilateral earache, severity moderate, associated with dizziness severity moderate. Patient also complaining of worsening allergic reaction/rashes to the bilateral lower extremity, associated with redness and itchiness. According to the family every time the hands and the forearm touches water it gets worse and become excoriated. Denies any focal neurologic deficit. Patient denies any slurring of speech. Denies any fever. Denies any headache. Patient was seen by [employer] [facility] supervisor and was given eczema cream with no relief. Denies any chest pain denies any palpitation . Patient denies any fever denies any other complaints. Patient is ambulatory with help from her daughter. Related Data Home Medications ?Medication ?Instructions ?Recorded ?Confirmed ondansetron 4 mg disintegrating 4 mg PO Q4-5H PRN Nausea 01/13/23 08/24/24 tablet Previous Rx's ?Medication ?Instructions ?Recorded acetaminophen 500 mg tablet 500 mg PO [id number] PRN Pain, Mild 03/12/23 #30 tabs omeprazole 40 mg capsule,delayed 40 mg PO QDAY #30 caps 03/12/23 release betamethasone dipropionate 0.05 % 1 applic topical QDAY #45 grams 07/07/23 topical ointment tramadol 50 mg tablet 50 mg PO Q6H PRN pain #30 tabs 08/16/23 levothyroxine 25 mcg capsule 25 mcg PO QDAY #60 caps 12/22/23 pilocarpine HCl 5 mg tablet 10 mg (2 x 5 mg) PO TID 30 days 01/06/24 #180 tabs amlodipine 2.5 mg tablet 2.5 mg PO QDAY 30 days #30 tabs 01/20/24 atorvastatin 40 mg tablet 40 mg PO QHS #30 tabs 01/20/24 ergocalciferol (vitamin D2) 1,250 1,250 mcg PO QWEEK #4 caps 01/20/24 mcg (50,000 unit) capsule acetaminophen 300 mg-codeine 30 mg 2 tab PO TID PRN pain #20 tabs 03/16/24 tablet diphenhydramine-zinc acetate 2 1 applic topical TID #28.3 grams 05/04/24 %-0.1 % topical cream (Benadryl Extra Strength) cyclobenzaprine 10 mg tablet 10 mg PO TID PRN muscle spasm #20 06/05/24 tabs lidocaine HCl 2 % mucosal solution 5 ml PO BID PRN throat pain #100 mL 07/17/24 (Lidocaine Viscous) sucralfate 100 mg/mL oral 10 ml PO BID #1,000 mL 07/20/24 suspension (Carafate) denosumab 60 mg/mL subcutaneous 60 mg subcut Q6M #1 mL 08/24/24 syringe dimethicone-colloidal oatmeal 1.25 1 ea topical QDAY #354 mL 08/24/24 % lotion (Aveeno Daily Moisturizing) amoxicillin 875 mg-potassium 1 tab PO BID #14 tabs 10/16/24 clavulanate 125 mg tablet cetirizine 10 mg capsule (Zyrtec) 10 mg PO QDAY #14 caps 10/16/24 famotidine 40 mg tablet (Pepcid) 40 mg PO QDAY #14 tabs 10/16/24 prednisone 50 mg tablet 50 mg PO QDAY #7 tabs 10/16/24 Allergies Allergy/AdvReac Type Severity Reaction Status Date / Time chicken derived Allergy Severe Hives Verified 10/16/24 18:01 coconut Allergy Severe Hives Verified 10/16/24 18:01 egg Allergy Severe Hives Verified 10/16/24 18:01 grass pollen Allergy Severe Hives Verified 10/16/24 18:01 hazelnut Allergy Severe Hives Verified 10/16/24 18:01 milk Allergy Severe Hives Verified 10/16/24 18:01 mold Allergy Severe Hives Verified 10/16/24 18:01 orange Allergy Severe Hives Verified 10/16/24 18:01 pear Allergy Severe Hives Verified 10/16/24 18:01 peas Allergy Severe Hives Verified 10/16/24 18:01 strawberry Allergy Severe Hives Verified 10/16/24 18:01 tree and shrub pollen Allergy Severe Hives Verified 10/16/24 18:01 turkey Allergy Severe Hives Verified 10/16/24 18:01 walnut Allergy Severe Hives Verified 10/16/24 18:01 wheat Allergy Severe Hives Verified 10/16/24 18:01 GREEN PEPPER Allergy Severe Hives Uncoded 10/16/24 18:01 Review of Systems Review of Systems Narrative Review of Systems: Review of system reviewed and within normal limits except mentioned in HPI ED Exam Narrative Physical exam: VITAL SIGNS: Reviewed. GENERAL APPEARANCE: Alert and interactive, follows commands, no acute distress, HEAD AND FACE: Non-traumatic. ENT: PERRL, pink conjunctivitis, eyelid no trauma, Mucous membrane moist. NECK: Supple, nontender, no nuchal rigidity. Bilateral tympanic membrane with erythema and bulging, and tender CHEST: No tenderness, no crepitus, no paradoxical movement, no retractions. LUNGS: Clear, well ventilated, symmetric, no rales, no wheezing, no ronchi, no stridor, good breath sounds bilaterally. HEART: Regular rate, regular rhythm, no murmur, no gallops. ABDOMEN: Soft, positive bowel sounds, nondistended, no guarding, nontender, no rebound, no masses, RECTAL: Deferred. GENITAL: Deferred. NEUROLOGICAL: Gross motor function intact sensory function intact, Appropriate for age. MUSCULOSKELETAL: low back nontender, full range of motion. EXTREMITIES: + redness, eczematous rashes noted on the bilateral forearm and hand dorsal aspect, full range of motion. SKIN: Color pink, dry, no rash, no lacerations, no abrasions, no contusions. LYMPHATICS: Deferred. Course Quality Measures none Orders Category Date Time Status EKG (ED ONLY) *Do not use* NOW Care 10/16/24 18:[address] head/brain wo con Stat Exams 10/16/24 18:27 Completed EKG (ED Only) Stat Exams 10/16/24 18:03 Draft CBC Stat Lab 10/16/24 18:36 Completed CMP [Comprehensive Metabolic Panel] Stat Lab 10/16/24 18:36 Completed Troponin I Stat Lab 10/16/24 18:36 Completed Urinalysis Stat Lab 10/16/24 19:00 Completed Dexamethasone Inj [Decadron Inj] Med 10/16/24 20:41 Discontinued 10 mg IM X1 ONE DiphenhydrAMINE [Benadryl] Med 10/16/24 20:41 Discontinued 25 mg PO X1 ONE Famotidine [Pepcid] Med 10/16/24 20:41 Discontinued 40 mg PO X1 ONE cefTRIAXone [Rocephin] 1,000 mg Med 10/16/24 20:41 Discontinued Lidocaine 1% 20 ml [Xylocaine 1% 20 ML] 2.1 ml IM X1 Vital Signs Vital signs: Vital Signs Temperature 98.7 F 10/16/24 18:16 Pulse Rate 85 10/16/24 18:16 Respiratory Rate 18 10/16/24 18:16 Blood Pressure 135/82 H 10/16/24 18:16 Pulse Oximetry (%) 95 10/16/24 18:16 Oxygen Delivery Method Room Air 10/16/24 18:16 Dizziness MDM Narrative MDM Narrative:: 69-year-old female patient came in for evaluation regarding bilateral earache. She been having worsening bilateral earache, severity moderate, associated with dizziness severity moderate. Patient also complaining of worsening allergic reaction/rashes to the bilateral lower extremity, associated with redness and itchiness. According to the family every time the hands and the forearm touches water it gets worse and become excoriated. Denies any focal neurologic deficit. Patient denies any slurring of speech. Denies any fever. Denies any headache. Patient was seen by [employer] supervisor and was given eczema cream with no relief. Denies any chest pain denies any palpitation . Patient denies any fever denies any other complaints. Patient is ambulatory with help from her daughter. CT scan of the head came back unremarkable. Patient's workup also came back with no acute pathology. Patient urinalysis no UTI. Clinically patient is having otitis media. And also worsening eczematous rash to the bilateral upper extremity. Patient will be started on antibiotic and prednisone Prior to discharge patient verbalized improvement of symptoms after patient received ceftriaxone IM Decadron IM Benadryl and Pepcid. Patient data External records reviewed:: None Clinical information provided by:: patient and family Social determinants that could affect healthcare access:: none Patient has the following chronic illnesses:: None How is presenting disease/condition affected by chronic disease/condition?: no chronic disease Evaluation data The following diagnostics were reviewed and interpreted by me:: lab results, radiology exam(s) and EKG tracing(s) Lab and/or radiology exams considered but not ordered:: None Interpretation Summary: EKG showed normal sinus rhythm, ventricular rate of 83 bpm, no ST segment elevation or depression noted..For the rest of the labs and CT scan findings see MDM Medications / Prescriptions Medications or Prescriptions considered but not ordered:: None Medication administrations:: Medication Administration History Discontinued Medications Ceftriaxone Sodium 1,000 mg/ (Lidocaine HCl 2.1 ml) 0 mg IM X1 ONE Stop: 10/16/24 20:42 Dexamethasone Sodium Phosphate (Dexamethasone Sod Phos Inj 10 Mg/Ml Vial) 10 mg IM X1 ONE Stop: 10/16/24 20:42 Diphenhydramine HCl (Diphenhydramine 25 Mg Capsule) 25 mg PO X1 ONE Stop: 10/16/24 20:42 Famotidine (Famotidine 20 Mg Tablet) 40 mg PO X1 ONE Stop: 10/16/24 20:42 Ceftriaxone IM, Decadron IM Benadryl and Pepcid Consultations Consultation(s) initiated? (list below): No Diagnosis Dizziness Differential Diagnosis: benign paroxysmal positional vertigo and other (Otitis media, eczematous rash) Most likely diagnosis given after review of the tests above:: Rash, otitis media, dizziness Admission Indicated Admission indicated?: not indicated Admission Request Was there a request for admission?: No Disposition Plan Disposition Plan: Discharge Discharge Attestation Discharge Attestation: The patient and all family members were given an opportunity to ask questions and understood the discharge instructions. Discharge instructions specifically effects, indications for sooner follow up or return to the emergency department, and the expected course of current diagnosis. Patient condition: Stable Discharge Plan Plan Patient Disposition: HOME (Self Care) Discharge Disposition comment: Stable Prescriptions/Referrals Prescriptions/Med Rec: New prednisone 50 mg tablet 50 mg PO QDAY Qty: 7 0RF Zyrtec 10 mg capsule 10 mg PO QDAY Qty: 14 0RF amoxicillin-pot clavulanate 875-125 mg tablet 1 tab PO BID Qty: 14 0RF famotidine [Pepcid] 40 mg tablet 40 mg PO QDAY Qty: 14 0RF No Action acetaminophen 500 mg tablet 500 mg PO [id number] PRN (Reason: Pain, Mild) Qty: 30 0RF omeprazole 40 mg capsule,delayed release(DR/EC) 40 mg PO QDAY Qty: 30 0RF sucralfate [Carafate] 100 mg/mL suspension 10 ml PO BID Qty: 1000 0RF Aveeno Daily Moisturizing 1.25 % lotion 1 ea topical QDAY Qty: 354 0RF denosumab 60 mg/mL syringe 60 mg subcut Q6M Qty: 1 0RF betamethasone dipropionate 0.05 % ointment 1 applic topical QDAY Qty: 45 0RF pilocarpine HCl 5 mg tablet 10 mg PO TID 30 Days Qty: 180 3RF amlodipine 2.5 mg tablet 2.5 mg PO QDAY 30 Days Qty: 30 2RF atorvastatin 40 mg tablet 40 mg PO QHS Qty: 30 2RF ergocalciferol (vitamin D2) 1,250 mcg (50,000 unit) capsule 1,250 mcg PO QWEEK Qty: 4 2RF Benadryl Extra Strength 2-0.1 % cream 1 applic topical TID Qty: 28.3 0RF levothyroxine 25 mcg capsule 25 mcg PO QDAY Qty: 60 1RF acetaminophen-codeine 300-30 mg tablet 2 tab PO TID MDD 6 PRN (Reason: pain) Qty: 20 0RF cyclobenzaprine 10 mg tablet 10 mg PO TID PRN (Reason: muscle spasm) Qty: 20 0RF ondansetron 4 mg tablet,disintegrating 4 mg PO Q4-5H PRN (Reason: Nausea) Patient Comments: DISSOLVE 1 TABLET ON THE TONGUE EVERY 4-6 HOURS NEEDED FOR NAUSEA FOR 14 DAYS tramadol 50 mg tablet 50 mg PO Q6H PRN (Reason: pain) Qty: 30 0RF lidocaine HCl [Lidocaine Viscous] 2 % solution 5 ml PO BID PRN (Reason: throat pain) Qty: 100 0RF Referrals: No Primary/Family,Physician [Primary Care Provider] - In 1 week Problem List Clinical Impression: Otitis media, Rash, Dizziness Patient/Caregiver Discharge Instructions Discharge Activity: activity as tolerated Education Materials: ED Otitis Media Antibiotic ... Additional Instructions: Thank you for the opportunity for serving you today. You are stable for discharged . You are advised to: Follow-up with your PCP in 1 to 2 days and continue to follow-up with political cartoonist. Return to ED for worsening of symptoms Increase oral fluids Take medication as prescribed Print Language: French Stand Alone Forms: Shira Award Info., Patient Portal Info Letter MARCELLE/TORREY Supervising Physician MARCELLE/TORREY Supervising Physician: MD Barrett
[2024-10-16] MEDS: cefTRIAXone 1,000 MG, LIDOCAINE 1% 20 ML 2.1 ML IM (21:06)
[2024-10-16] MEDS: DEXAMETHASONE SOD PHOS INJ 10 MG/ML VIAL IM (21:10)
[2024-10-16] MEDS: FAMOTIDINE 20 MG TABLET 40 MG PO (21:11)
== END 2024-10-16 21:24 | disposition home or self-care (01) ==
PROVIDERS: Nurse Practitioner Family; Emergency Provider Emergency Medicine
DX: H66.93 Otitis media, unspecified, bilateral (principal); R21 Rash and other nonspecific skin eruption; R42 Dizziness and giddiness
CPT/HCPCS: 36415; 70450; 80053; 81001; 84484; 85025; 93005; 96372; 99283; J0696; J1100; J3490; A9270

== ENCOUNTER 2024-10-28 13:41 | Outpatient (AMB) | payer MEDICAID, SELFPAY ==
[2024-10-28 13:51] VITALS: BP 150/76; PULSE 68; RESP 18; TEMP 36.7; O2SAT 96; BMI 24.8
--- NOTE | 2024-10-28 13:51 | ACNOTE_ITS ---
Vital Signs 10/28/24 13:51 Height 1.57 m Height Method Stated Weight 61.235 kg Weight Measurement Method Standing Scale BMI 24.8 BP 150/76 H Blood Pressure Source Automatic Cuff Blood Pressure Location Right Upper Arm Position Sitting Respiration 18 Pulse 68 Pulse Source Monitor Temp 98.0 F Temp Source Temporal Artery Scan Pulse Oximetry (%) 96 Oxygen Delivery Method Room Air Allergies/Meds Allergies & Medications Allergies chicken derived Allergy (Severe, Verified 11/18/24 13:56) Hives coconut Allergy (Severe, Verified 11/18/24 13:56) Hives egg Allergy (Severe, Verified 11/18/24 13:56) Hives grass pollen Allergy (Severe, Verified 11/18/24 13:56) Hives hazelnut Allergy (Severe, Verified 11/18/24 13:56) Hives milk Allergy (Severe, Verified 11/18/24 13:56) Hives mold Allergy (Severe, Verified 11/18/24 13:56) Hives orange Allergy (Severe, Verified 11/18/24 13:56) Hives pear Allergy (Severe, Verified 11/18/24 13:56) Hives peas Allergy (Severe, Verified 11/18/24 13:56) Hives strawberry Allergy (Severe, Verified 11/18/24 13:56) Hives tree and shrub pollen Allergy (Severe, Verified 11/18/24 13:56) Hives turkey Allergy (Severe, Verified 11/18/24 13:56) Hives walnut Allergy (Severe, Verified 11/18/24 13:56) Hives wheat Allergy (Severe, Verified 11/18/24 13:56) Hives GREEN PEPPER Allergy (Severe, Uncoded 11/18/24 13:56) Hives MA Intake Visit Data Collection New Patient or Established: Established Patient (seen at [facility] within 3 years) Seen by Clinical Staff ONLY (RN/MA): No Reason for Visit:: PT HERE IN OFFICE FOR A FOLLOW UP, COMPLAINTS OF HEADACHES Pain Present Currently: Yes Pain Location: Head (HEADACHES PT TOOK TYLENOL AT HOME) Pain scale:: 6 Language: PT FAMILY MEMBER WILL INTERPRET Office Assistant Required: Yes Primary Care Provider: DR. VELÁSQUEZ PCP or OBGYN visit in last 3 months: Yes Date of Last PCP or OBGYN visit: 10/16/24 Hx Now: No Do You Feel Safe at Home: Yes Authorities Contacted: N/A Smoking Status Smoking Status: Never smoker Immunization / Flu Flu Vaccine in the Last 12 Months: No Flu Vaccine Exclusion Criteria: Refused by Patient Past Medical History Past Medical History NEUROLOGIC: Positive Neurological Disorders and Migraine; Negative Seizures CARDIAC: Positive Hypertension; Negative Cardiac Disorders or Congestive Heart Failure RESPIRATORY: Negative Chronic Obstructive Pulmonary Disease (COPD) or Asthma GASTROINTESTINAL: Positive Gastrointestinal Disorders and Gastroesophageal Reflux Disease GENITOURINARY: Positive Genitourinary Disorders and Kidney Stones; Negative Renal Disease ENT: Positive Cataracts ENDOCRINE: Positive Hypothyroidism; Negative Diabetes Mellitus Type 1 or Diabetes Mellitus Type 2 HEMATOLOGIC: Negative Blood Disorders or Sickle Cell Disease PSYCHO/SOCIAL: Negative Depression or Anxiety OTHER HISTORY: Positive Chemotherapy, Radiation Therapy and Cancer; Negative Autoimmune Disease, Blood Transfusions, Blood Transfusion Reaction, Anesthesia Reactions, MRSA, VRSA, Vancomycin-Resistant Enterococci or Clostridium Difficile Family History FAMILY HISTORY: Negative Family Psychiatric Problems, Family Respiratory Disorders, Family Cardiac Disorders, Family Gastrointestinal Problems, Family Cancer, Family Surgery or Family Anesthesia Reaction Social History SMOKING STATUS: Smoking status: Never smoker ALCOHOL: Alcohol Intake: Never HOUSING: Housing: House LIVES WITH: Lives With: Family Patient Portal Karl Social History Living Situation History Housing: House Tobacco History Smoking Status: Never smoker Alcohol History Alcohol Intake: Never Domestic Abuse History Do You Feel Safe at Home: Yes Review of Systems Report any current symptoms Only answer those that you have currently: Past Medical History Past Medical History Have you ever been diagnosed with any of the following: Neurological Problems Seizures: No Migraine: Yes Cardiology Problems Congestive Heart Failure: No Hypertension: Yes Respiratory Problems Chronic Obstructive Pulmonary Disease (COPD): No Asthma: No Stomache/Intestinal Problems Gastroesophageal Reflux Disease: Yes Genital/Urinary Problems Renal Disease: No Kidney Stones: Yes Head,Eye,Nose,Throat Problems Cataracts: Yes Endocrine Problems Diabetes Mellitus Type 1: No Diabetes Mellitus Type 2: No Hypothyroidism: Yes Blood Problems Sickle Cell Disease: No Psychologic Problems Depression: No Anxiety: No Other Problems Autoimmune Disease: No Blood Transfusions: No Blood Transfusion Reaction: No Anesthesia Reactions: No Chemotherapy: Yes Radiation Therapy: Yes MRSA: No VRSA: No Vancomycin-Resistant Enterococci: No Clostridium Difficile: No Cancer: Yes History of Present Illness HPI Narrative A 67-year-old female patient known case of hypertension, CKD, cataract surgery, hypothyroidism, 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 Patient reported that for the past few days she has reported that she has dizziness in which she went to the ED and she was prescribed Tylenol, ibuprofen, and underwent earwax cleaning. She reported significant improvement of her symptoms however she still have some mild dizziness that is not related to position. She denied any tinnitus and denied any nausea or vomiting. She reported that her blood pressure usually normal and she stopped taking her blood pressure medications amlodipine. In review of other system patient mentioned that she has mild hip pain in which she takes Tylenol and resolved her symptoms. DEXA scan came back today and showed osteoporosis of the vertebral bones of -2.8. 05/04/2024 Todat patient presented due to excessive itching on her hands, forarms and face, that appears on the exposed areas, She denied any fever or chills, however she reported fascial puffiness and itching. Of note patient was referred to business account specialist in [place] after her skin biopsy came back positive for Allergic dermatitis, in which he recommended to stop all the medications and resummed some of these meds gradually, and she was given a course of methylprednisolone for one week orally which resolved her symptoms, however yesterday was her last pill and her itching returned again. She mentioned that she used Zyrtec 5 once at bed time however it did not help. The patient next appointment with the business account specialist is on the this month. On review of other system she reproeted that she was referred last month to an ENT due to her dizziness and hearing loss, she was prescribed hearing aid however we asked the patient to ask for a copy of the medical record. Today she reported that she still has mild dizziness that last for few seconds assoicated with change of position, denied any N/V. 07/20/2024 Patient came today after she was admitted to the ED for burning chest pain that was radiating to the back, Patient reported that the pain was so severe and she could not tolerate feeding at that time. She mentions that the pain was worse whenever she eats anything solid or hot food. On questioning about her meds her care provider mentioned that her pain started at the same day when she took her osteoporosis medication. Patient went to the ED her vitals were normal, EKG with no ischemic changes Labs were within her usual state, Lipase was normal, Trops 2 times within normal limits, CTA was negative for PE, CT Abdomen and pelvce showed Prominent mucosal edema in the stomach including gastric antrum and including the duodenal bulb, and active duodenal ulcer. 08/24/2024. Patient came today due to worsening of her upper extremity skin rash. It was noticed that her rash has become more extensive and severe but at the same time it seems that it is healing. She mentioned that she was prescribed prednisone by her food service director and [place] with a taper. She was given 40 mg for 2 days followed by 20 mg for 2 days and 10 mg for 1 day which seems to be helping with her symptoms. When I asked the patient she believes that her symptoms worsen whenever she do the dishwashing at home. She also noticed that is only severe on the right side of the upper extremity mainly on the medial side. Her daughter at bedside that is resemble the the area that has contact with the water. I asked the patient if she is wearing gloves however she mentioned only wear gloves that only covers the hands but not the forearms. On review of other symptoms patient reported right knee pain and mild swelling however on examination there was no tenderness, redness or hotness. Patient reported that she takes Tylenol for her pain which helped resolve her symptoms. Regarding her osteoporosis medication denosumab she reported that she has not taken her med from the pharmacy she said that she has not given any injections. Will resend the medication again for the patient. 10/28/2024, patient was seen and examined at bedside. She came today because of worsening upper extremity skin rash and which urged her to go to the emergency department last week. She the rash was severe that caused swelling and oozing of serous discharge from the hands and upper extremities. Patient was diagnosed at the emergency department as allergic reaction and was given Dexamethasone injection and was given 1 dose of diphenhydramine. During her presentation at the ED patient was also complaining of dizziness and a brain CT scan was done that was negative for any neurological findings. Patient was diagnosed as otitis externa and was given 1 dose of ceftriaxone and was discharged on Augmentin. Prednisone 50 mg, Zyrtec, famotidine. Today she came for follow-up she reported that her ear ache and dizziness has resolved, denied any ear discharge. Her skin rash she mentioned that it has been improving significantly. When she was questioned about her referral to her health social work professor she said that she still waiting for appointment from a health social work professor and [place]. Will follow-up if there is no response we will send another referral for the patient. Review of Systems Review of Systems Systems Reviewed: All systems reviewed, normal except as documented Objective/Exam Narrative Physical exam: GEN: AOx3, able to speak full sentences, Seems to gain weight, HEENT: NC/AC, Face looks puffy, oral mucosa dry, neck supple CVS: RRR, S1-S2 present, no murmurs appreciated RESP: CTAB GI: soft, epigastric tenderness, NBS MSK: able to move all 4 limbs, no lower extremity edema SKIN: Bilateral upper extremity redness, hotness, and tenderness. She has significant improvement since she went to the ED. Compared to her pictures on her phone. RESTAURANT SERVICE MANAGER: CN II-XII and Sensation grossly intact. Assessment & Plan Diagnosis / Problem List (1) Contact dermatitis: Status: Acute Qualifiers: Contact dermatitis type: allergic Contact dermatitis trigger: unspecified trigger Qualified Code(s): L23.9 - Allergic contact dermatitis, unspecified cause Assessment & Plan: From the patient description of the rash, physical examination which showed distribution of the lesion at the surfaces that contact the water when the patient washing dishes most likely her skin rash as a result of contact dermatitis. However her food service director specialist in [place] recommended the patient to follow-up with a health social work professor as she believes there is something else that prevent the resolution for symptoms. Patient reported that she has not did any dishwashing for the past 3 days. Her daughter at bedside mentions that her mother is stubborn and sometimes he continue to do the dishwashing in which she believes that it is the reason that she has the skin rash. Of note skin biopsy was done and it showed possible allergic inflammatory changes. 10/28, patient went to the emergency department due to flare of her contact dermatitis on 10/16 2024. She was given 1 dose of dexamethasone in the emergency department due to acute flare. She was discharged on prednisone. She reported mild improvement of her symptoms. Patient still pending an appointment with her health social work professor Plan: ? Referral to health social work professor in [facility] was sent however patient is still waiting for the appointment. ? Continue his prednisolone taper ? Betamethasone 0.05 mg ointment was prescribed twice a day. Follow-up after 2 weeks ? Complete avoidance of any contact with detergent, dishwashing soap. (2) Otitis media: Status: Acute Qualifiers: Otitis media type: unspecified Chronicity: acute Qualified Code(s): H66.90 - Otitis media, unspecified, unspecified ear Assessment & Plan: Patient went to the ED on 10/16 due to bilateral earache, dizziness. CT scan was done with the brain and it was negative. At that time neurological assessment was done there was no focal neurological deficit. Patient was prescribed Augmentin. Denied any discharge and reported complete improvement of her symptoms. Examination was negative for any tympanic membrane perforation. Plan ? This is patient's second episode of otitis media. If the patient has another episode of otitis media patient will be referred to ENT specialist. Additional Plan ? Refill home meds was done. Advanced Care Planning Advance care planning discussed with:: patient and child Office Procedures [facility] Level of Care Nursing/Assessment Patient Status: Established Patient Nursing Assessment/Reassessment: Medication Reconciliation, Update PMH in EMR and Vital Signs Coordination of Care: Complex Care and Chronic Disease 1-5, Consent,records obtained, informed consent, Lab and Imaging orders and Results/Orders obtained Established Patient Charge Established Patient Point Assignment: 80 Established Patient Point Charge: Level 3 (80-115)
== END 2024-10-28 14:16 | disposition home or self-care (01) ==
LOC: HODAHC 13:41
PROVIDERS: Supervising Provider Internal Medicine; Visit Provider Student in an Organized Health Care Education/Training Program
DX: L23.9 Allergic contact dermatitis, unspecified cause (principal); H66.90 Otitis media, unspecified, unspecified ear
CPT/HCPCS: 99213; G0463

== ENCOUNTER 2024-11-18 13:48 | Outpatient (AMB) | payer MEDICAID, SELFPAY ==
[2024-11-18 13:55] VITALS: BP 124/70; PULSE 72; RESP 19; TEMP 36.7; O2SAT 96; BMI 24.7
--- NOTE | 2024-11-18 13:55 | ACNOTE_ITS ---
Vital Signs 11/18/24 13:55 Height 1.57 m Height Method Stated Weight 61.008 kg Weight Measurement Method Standing Scale BMI 24.7 BP 124/70 Blood Pressure Source Automatic Cuff Blood Pressure Location Left Upper Arm Position Sitting Respiration 19 Pulse 72 Pulse Source Monitor Temp 98.0 F Temp Source Oral Pulse Oximetry (%) 96 Oxygen Delivery Method Room Air Allergies/Meds Allergies & Medications Allergies chicken derived Allergy (Severe, Verified 11/25/24 15:09) Hives coconut Allergy (Severe, Verified 11/25/24 15:09) Hives egg Allergy (Severe, Verified 11/25/24 15:09) Hives grass pollen Allergy (Severe, Verified 11/25/24 15:09) Hives hazelnut Allergy (Severe, Verified 11/25/24 15:09) Hives milk Allergy (Severe, Verified 11/25/24 15:09) Hives mold Allergy (Severe, Verified 11/25/24 15:09) Hives orange Allergy (Severe, Verified 11/25/24 15:09) Hives pear Allergy (Severe, Verified 11/25/24 15:09) Hives peas Allergy (Severe, Verified 11/25/24 15:09) Hives strawberry Allergy (Severe, Verified 11/25/24 15:09) Hives tree and shrub pollen Allergy (Severe, Verified 11/25/24 15:09) Hives turkey Allergy (Severe, Verified 11/25/24 15:09) Hives walnut Allergy (Severe, Verified 11/25/24 15:09) Hives wheat Allergy (Severe, Verified 11/25/24 15:09) Hives GREEN PEPPER Allergy (Severe, Uncoded 11/25/24 15:09) Hives Medication Reconciliation ondansetron 4 mg disintegrating tablet 4 mg PO Q4-5H PRN Nausea 01/13/23 [History Confirmed 11/18/24] acetaminophen 500 mg tablet 500 mg PO P5ESAAL PRN Pain, Mild #30 tabs 03/12/23 [Rx Confirmed 11/18/24] omeprazole 40 mg capsule,delayed release 40 mg PO QDAY #30 caps 03/12/23 [Rx Confirmed 11/18/24] tramadol 50 mg tablet 50 mg PO Q6H PRN pain #30 tabs 08/16/23 [Rx Confirmed 11/18/24] ergocalciferol (vitamin D2) 1,250 mcg (50,000 unit) capsule 1,250 mcg PO QWEEK #4 caps 01/20/24 [Rx Confirmed 11/18/24] acetaminophen 300 mg-codeine 30 mg tablet 2 tab PO TID PRN pain #20 tabs 03/16/24 [Rx Confirmed 11/18/24] diphenhydramine-zinc acetate 2 %-0.1 % topical cream (Benadryl Extra Strength) 1 applic topical TID #28.3 grams 05/04/24 [Rx Confirmed 11/18/24] cyclobenzaprine 10 mg tablet 10 mg PO TID PRN muscle spasm #20 tabs 06/05/24 [Rx Confirmed 11/18/24] lidocaine HCl 2 % mucosal solution (Lidocaine Viscous) 5 ml PO BID PRN throat pain #100 mL 07/17/24 [Rx Confirmed 11/18/24] sucralfate 100 mg/mL oral suspension (Carafate) 10 ml PO BID #1,000 mL 07/20/24 [Rx Confirmed 11/18/24] denosumab 60 mg/mL subcutaneous syringe 60 mg subcut Q6M #1 mL 08/24/24 [Rx Confirmed 11/18/24] dimethicone-colloidal oatmeal 1.25 % lotion (Aveeno Daily Moisturizing) 1 ea topical QDAY #354 mL 08/24/24 [Rx Confirmed 11/18/24] amoxicillin 875 mg-potassium clavulanate 125 mg tablet 1 tab PO BID #14 tabs 10/16/24 [Rx Confirmed 11/18/24] famotidine 40 mg tablet (Pepcid) 40 mg PO QDAY #14 tabs 10/16/24 [Rx Confirmed 11/18/24] prednisone 50 mg tablet 50 mg PO QDAY #7 tabs 10/16/24 [Rx Confirmed 11/18/24] dimethicone 1.75 % topical cream 1 applic topical QDAY #118 mL 10/28/24 [Rx Confirmed 11/18/24] amlodipine 2.5 mg tablet 2.5 mg PO QDAY 30 days #30 tabs 11/18/24 [Rx] atorvastatin 40 mg tablet 40 mg PO QHS #30 tabs 11/18/24 [Rx] cetirizine 10 mg capsule (Zyrtec) 10 mg PO QDAY #14 caps 11/18/24 [Rx] levothyroxine 25 mcg capsule 25 mcg PO QDAY #60 caps 11/18/24 [Rx] pilocarpine HCl 5 mg tablet 10 mg (2 x 5 mg) PO TID 30 days #180 tabs 11/18/24 [Rx] DORIS Intake Visit Data Collection New Patient or Established: Established Patient (seen at [facility] within 3 years) Seen by Clinical Staff ONLY (RN/MA): No Pain Present Currently: Yes Pain Location: Eye Pain scale:: 3 Pain Scale Used: Darby-Marlow/Numerical PCP or OBGYN visit in last 3 months: Yes Smoking Status Smoking Status: Never smoker Immunization / Flu Flu Vaccine in the Last 12 Months: No Flu Vaccine Exclusion Criteria: No Exclusion Criteria Past Medical History Past Medical History NEUROLOGIC: Positive Neurological Disorders and Migraine; Negative Seizures CARDIAC: Positive Hypertension; Negative Cardiac Disorders or Congestive Heart Failure RESPIRATORY: Negative Chronic Obstructive Pulmonary Disease (COPD) or Asthma GASTROINTESTINAL: Positive Gastrointestinal Disorders and Gastroesophageal Reflux Disease GENITOURINARY: Positive Genitourinary Disorders and Kidney Stones; Negative Renal Disease ENT: Positive Cataracts ENDOCRINE: Positive Hypothyroidism; Negative Diabetes Mellitus Type 1 or Diabetes Mellitus Type 2 HEMATOLOGIC: Negative Blood Disorders or Sickle Cell Disease PSYCHO/SOCIAL: Negative Depression or Anxiety OTHER HISTORY: Positive Chemotherapy, Radiation Therapy and Cancer; Negative Autoimmune Disease, Blood Transfusions, Blood Transfusion Reaction, Anesthesia Reactions, MRSA, VRSA, Vancomycin-Resistant Enterococci or Clostridium Difficile Family History FAMILY HISTORY: Negative Family Psychiatric Problems, Family Respiratory Disorders, Family Cardiac Disorders, Family Gastrointestinal Problems, Family Cancer, Family Surgery or Family Anesthesia Reaction Social History SMOKING STATUS: Smoking status: Never smoker ALCOHOL: Alcohol Intake: Never HOUSING: Housing: House LIVES WITH: Lives With: Family Patient Portal Karl Social History Living Situation History Housing: House Tobacco History Smoking Status: Never smoker Alcohol History Alcohol Intake: Never Review of Systems Report any current symptoms Only answer those that you have currently: Past Medical History Past Medical History Have you ever been diagnosed with any of the following: Neurological Problems Seizures: No Migraine: Yes Cardiology Problems Congestive Heart Failure: No Hypertension: Yes Respiratory Problems Chronic Obstructive Pulmonary Disease (COPD): No Asthma: No Stomache/Intestinal Problems Gastroesophageal Reflux Disease: Yes Genital/Urinary Problems Renal Disease: No Kidney Stones: Yes Head,Eye,Nose,Throat Problems Cataracts: Yes Endocrine Problems Diabetes Mellitus Type 1: No Diabetes Mellitus Type 2: No Hypothyroidism: Yes Blood Problems Sickle Cell Disease: No Psychologic Problems Depression: No Anxiety: No Other Problems Autoimmune Disease: No Blood Transfusions: No Blood Transfusion Reaction: No Anesthesia Reactions: No Chemotherapy: Yes Radiation Therapy: Yes MRSA: No VRSA: No Vancomycin-Resistant Enterococci: No Clostridium Difficile: No Cancer: Yes History of Present Illness HPI Narrative A 67-year-old female patient known case of hypertension, CKD, cataract surgery, hypothyroidism, 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 Patient reported that for the past few days she has reported that she has dizziness in which she went to the ED and she was prescribed Tylenol, ibuprofen, and underwent earwax cleaning. She reported significant improvement of her symptoms however she still have some mild dizziness that is not related to position. She denied any tinnitus and denied any nausea or vomiting. She reported that her blood pressure usually normal and she stopped taking her blood pressure medications amlodipine. In review of other system patient mentioned that she has mild hip pain in which she takes Tylenol and resolved her symptoms. DEXA scan came back today and showed osteoporosis of the vertebral bones of -2.8. 05/04/2024 Todat patient presented due to excessive itching on her hands, forarms and face, that appears on the exposed areas, She denied any fever or chills, however she reported fascial puffiness and itching. Of note patient was referred to ventilator specialist in [place] after her skin biopsy came back positive for Allergic dermatitis, in which he recommended to stop all the medications and resummed some of these meds gradually, and she was given a course of methylprednisolone for one week orally which resolved her symptoms, however yesterday was her last pill and her itching returned again. She mentioned that she used Zyrtec 5 once at bed time however it did not help. The patient next appointment with the ventilator specialist is on the this . On review of other system she reproeted that she was referred last month to an ENT due to her dizziness and hearing loss, she was prescribed hearing aid however we asked the patient to ask for a copy of the medical record. Today she reported that she still has mild dizziness that last for few seconds assoicated with change of position, denied any N/V. 07/20/2024 Patient came today after she was admitted to the ED for burning chest pain that was radiating to the back, Patient reported that the pain was so severe and she could not tolerate feeding at that time. She mentions that the pain was worse whenever she eats anything solid or hot food. On questioning about her meds her care provider mentioned that her pain started at the same day when she took her osteoporosis medication. Patient went to the ED her vitals were normal, EKG with no ischemic changes Labs were within her usual state, Lipase was normal, Trops 2 times within normal limits, CTA was negative for PE, CT Abdomen and pelvce showed Prominent mucosal edema in the stomach including gastric antrum and including the duodenal bulb, and active duodenal ulcer. 08/24/2024. Patient came today due to worsening of her upper extremity skin rash. It was noticed that her rash has become more extensive and severe but at the same time it seems that it is healing. She mentioned that she was prescribed prednisone by her retail furniture sales and Bernard with a taper. She was given 40 mg for 2 days followed by 20 mg for 2 days and 10 mg for 1 day which seems to be helping with her symptoms. When I asked the patient she believes that her symptoms worsen whenever she do the dishwashing at home. She also noticed that is only severe on the right side of the upper extremity mainly on the medial side. Her daughter at bedside that is resemble the the area that has contact with the water. I asked the patient if she is wearing gloves however she mentioned only wear gloves that only covers the hands but not the forearms. On review of other symptoms patient reported right knee pain and mild swelling however on examination there was no tenderness, redness or hotness. Patient reported that she takes Tylenol for her pain which helped resolve her symptoms. Regarding her osteoporosis medication denosumab she reported that she has not taken her med from the pharmacy she said that she has not given any injections. Will resend the medication again for the patient. 10/28/2024, patient was seen and examined at bedside. She came today because of worsening upper extremity skin rash and which urged her to go to the emergency department last week. She the rash was severe that caused swelling and oozing of serous discharge from the hands and upper extremities. Patient was diagnosed at the emergency department as allergic reaction and was given Dexamethasone injection and was given 1 dose of diphenhydramine. During her presentation at the ED patient was also complaining of dizziness and a brain CT scan was done that was negative for any neurological findings. Patient was diagnosed as otitis externa and was given 1 dose of ceftriaxone and was discharged on Augmentin. Prednisone 50 mg, Zyrtec, famotidine. Today she came for follow-up she reported that her ear ache and dizziness has resolved, denied any ear discharge. Her skin rash she mentioned that it has been improving significantly. When she was questioned about her referral to her assistant speech language pathologist she said that she still waiting for appointment from a assistant speech language pathologist and Bernard. Will follow-up if there is no response we will send another referral for the patient. 11/18/2024 Patient came in due to eye dryness for 3 days, She reported that her symptoms initially were flu like sx, including congestion, runny nose and sneezing. after that she start to have eye dryness and mild itching. the dryness is persistant even though she was using infrequent otc eye drops. No blurry vision or discharge and denied any similar condition amonge her family members. Of note she has stopped her pilocarpine pills as per retail furniture sales recommendations due to her resistant contact dermatitis. Objective/Exam Narrative Physical exam: GEN: AOx3,wearing a mask, able to speak full sentences, Seems to gain weight, HEENT: NC/AC, Mild b/l pink eyes, no discharge, pupils are equal and reactive. CVS: RRR, S1-S2 present, no murmurs appreciated RESP: CTAB GI: soft, epigastric tenderness, NBS MSK: able to move all 4 limbs, no lower extremity edema SKIN: Bilateral upper extremity redness, hotness, and tenderness. She has significant improvement since she went to the ED. Compared to her pictures on her phone. COMPOUND MIXER: CN II-XII and Sensation grossly intact. Assessment & Plan Diagnosis / Problem List (1) Dry eye syndrome: Status: Acute Qualifiers: Laterality: bilateral Qualified Code(s): H04.123 - Dry eye syndrome of bilateral lacrimal glands Assessment & Plan: Ptient she chronic Dry Eye Syndrome and xerostomia, 2/2 to her neck radiation radiations even though Pilocaripne was stopped by her PCP patient continue to have the contact dermatitis most likely 2/2 to non-compliance to instructions. At this time most likely her chronic dry eyes worsened due to the superimposed upper viral infection vs allergy. Plan: - Resume her Pilocrpine 7.5mg PO TID with close monitring of the dermatitis flare up. - start the patient on cetrizine 10 mg po qday for 3 days. - Continue using otc artificial tears - Tele-visit after one week Additional Assessment Attending note: I, Demarco Begum MD, attest that I was physically present for the palacios portions of the service and evaluated the patient with the resident and I reviewed and discussed the case with the resident and agree with the resident's findings and plans of care as documented above. Demarco Begum MD Advanced Care Planning Advance care planning discussed with:: patient and child Physician Billing Established Patient Established Patient: E/M Level 3-CPT 13826 Office Procedures [facility] Level of Care Nursing/Assessment Patient Status: Established Patient Nursing Assessment/Reassessment: Medication Reconciliation, Update PMH in EMR and Vital Signs Coordination of Care: Complex Care and Chronic Disease 1-5, Education Complex Pt/Fam, Results/Orders obtained and Staff clarify orders Established Patient Charge Established Patient Point Assignment: 90 Established Patient Point Charge: Level 3 (80-115)
== END 2024-11-18 14:42 | disposition home or self-care (01) ==
LOC: HODAHC 13:48
PROVIDERS: PCP Student in an Organized Health Care Education/Training Program; Referring Provider Student in an Organized Health Care Education/Training Program; Supervising Provider Internal Medicine; Visit Provider Student in an Organized Health Care Education/Training Program
DX: H04.123 Dry eye syndrome of bilateral lacrimal glands (principal); K11.7 Disturbances of salivary secretion; I12.9 Hypertensive chronic kidney disease with stage 1 through stage 4 chronic kidney disease, or unspecified chronic kidney disease; N18.9 Chronic kidney disease, unspecified; E03.9 Hypothyroidism, unspecified
CPT/HCPCS: 99213; G0463